=== PATIENT | female | born 1990 | race Caucasian/White ===

== ENCOUNTER 2019-07-20 08:45 | Outpatient (CLI) | payer MEDICAID, SELFPAY ==
[2019-07-20 08:45] VITALS: BMI 35.4
[2019-07-20 09:04] VITALS: BP 120/69; PULSE 98; RESP 17; TEMP 36.7
[2019-07-20 09:33] VITALS: BP 108/57; PULSE 90; TEMP 37
== END 2019-07-20 09:35 | disposition home or self-care (01) ==
PROVIDERS: Family Provider Family Medicine; PCP Family Medicine; Visit Provider Family Medicine
DX: O36.8190 Decreased fetal movements, unspecified trimester, not applicable or unspecified (principal); Z3A.00 Weeks of gestation of pregnancy not specified
CPT/HCPCS: 59025; 99211

== ENCOUNTER 2019-08-20 13:40 | Outpatient (CLI) | payer MEDICAID, SELFPAY ==
[2019-08-20 14:01] VITALS: BP 123/65; PULSE 93
--- NOTE | 2019-08-20 14:11 | US_ITS ---
WS: [id number] OB BPP wo NST 47077 REASON FOR EXAM: hypertention FINDINGS: The cervix measured 3.99 cm. heart rate 1 20 bpm Amniotic fluid indices 12.26 cm Abdominal circumference 32.83 weeks gestation 36 weeks 5 day station. Head circumference biparietal diameter 9.14 cm 37 weeks 1 day gestation Head circumference 32.5 cm 36 weeks 6 days gestation Weight 3074 grams 38 weeks 2 days gestation All 4 chambers of the heart are well seen. All 4 chambers show normal appearance. A grade 2 placenta fundal and posterior Biophysical profile 01/25. US/US OB BPP wo NST 28555 IMPRESSION: Fetus appears to be at 38 weeks gestation. SHIRA September 01, 2019 Biophysical profile 01/25 The parts were not completely evaluated on this study.
[2019-08-20 14:17] VITALS: BP 116/63; PULSE 86
[2019-08-20 14:31] VITALS: BMI 38.0
[2019-08-20 14:31] LABS: Basophils % 0.3 %; Eosinophils # 0.1 10^3/uL (0.0-0.8); Eosinophils % 0.6 %; Hematocrit 33.9 % (37.0-47.0); Hemoglobin 10.9 g/dL (11.5-15.3); Lymphocytes # 1.9 10^3/uL (0.8-4.8); Lymphocytes % 24.5 %; Mean Corpuscular HGB Conc 32.2 g/dL (30.0-36.0); Mean Corpuscular Hemoglobin 28.2 pg (28.0-34.0); Mean Corpuscular Volume 87.8 fL (81-99); Mean Platelet Volume 9.3 fL (7.4-10.4); Monocytes # 0.6 10^3/uL (0.2-0.9); Monocytes % 7.1 %; Neutrophils # 5.1 10^3/uL (1.8-7.7); Neutrophils % 64.3 %; Nucleated Red Blood Cells % 0 %; Platelet Count 214 10^3/cmm (130-400); Red Blood Count 3.86 10^6/uL (4.1-5.3); Red Cell Distribution Width 13.5 % (12.1-15.1); White Blood Count 7.9 10^3/uL (4.0-10.0)
[2019-08-20 14:32] LABS: Bilirubin Urine Neg (NEGATIVE); Blood Urine Neg (Negative); Glucose Urine UA Norm (Normal); Ketones Urine Negative (Negative); Nitrate Urine Negative (Negative); Protein Urine Neg (Negative); Specific Gravity, Urine 1.015 (1.005-1.030); Urine Appearance SL Hazy (CLEAR); Urine Color Straw (Yellow); Urobilinogen Urine Norm (Negative); pH Urine 6 (5-7)
[2019-08-20 14:33] LABS: Add Urine Microscopic? YES; Leukocyte Esterase Urine Trace (Negative)
[2019-08-20 14:37] VITALS: BP 112/68; PULSE 83
[2019-08-20 14:40] LABS: Bacteria Urine TRACE
[2019-08-20 14:41] LABS: Squamous Epithelial Cell Urine 15-25 (0-5)
[2019-08-20 14:48] LABS: Urine Creatinine 40 mg/dL (28-217); Urine Protein Random 6 mg/dL
[2019-08-20 14:51] LABS: UPRO/UCREAT Ratio 0.15 mg/mg CR
[2019-08-20 14:57] VITALS: BP 112/65; PULSE 87
[2019-08-20 14:59] LABS: Alanine Aminotransferase 9 U/L (0-33); Albumin Level 3.4 g/dL (3.5-5.2); Alkaline Phosphatase 150 IU/L (35-105); Aspartate Amino Transferase 16 U/L (0-32); Blood Urea Nitrogen 9 mg/dL (6-20); Calcium 9.7 mg/dL (8.5-10.5); Carbon Dioxide 20 mmol/L (22-29); Chloride 103 mmol/L (98-107); Globulin 2.6 g/dL (1.3-4.6); Glomerular Filtration Rate 144.9 mL/min (90-130); Glucose 118 mg/dL (65-115); Sodium 137 mmol/L (136-145); Total Bilirubin 0.2 mg/dL (0.15-1.2); Uric Acid 3.8 mg/dL (2.4-5.7)
[2019-08-20 15:23] VITALS: BP 112/65; PULSE 87
[2019-08-20 15:25] VITALS: BP 120/72; PULSE 86
== END 2019-08-20 15:43 | disposition home or self-care (01) ==
LOC: OPOB 13:54 → OBGYN 15:23 → OPOB 08-21 08:04
PROVIDERS: Family Provider Family Medicine; PCP Family Medicine; Visit Provider Family Medicine
DX: O16.9 Unspecified maternal hypertension, unspecified trimester (principal); Z3A.00 Weeks of gestation of pregnancy not specified
CPT/HCPCS: 36415; 59025; 76819; 80053; 81001; 82570; 84156; 84550; 85025; 99211

== ENCOUNTER 2019-08-21 17:31 | Outpatient (CLI) | payer MEDICAID, SELFPAY ==
[2019-08-21 18:52] LABS: Total Volume, Urine 3000 mL
[2019-08-21 19:39] LABS: Urine Total Protein 24 Hour 11.2 mg/dL (0-150)
== END 2019-08-21 17:32 | disposition home or self-care (01) ==
LOC: OPOB 17:33
PROVIDERS: Family Provider Family Medicine; PCP Family Medicine; Visit Provider Family Medicine
DX: Z53.21 Procedure and treatment not carried out due to patient leaving prior to being seen by health care provider (principal)
CPT/HCPCS: 84156

== ENCOUNTER 2019-08-23 11:45 | Outpatient (CLI) | payer MEDICAID, SELFPAY ==
[2019-08-23 11:59] VITALS: BP 111/62; PULSE 104
[2019-08-23 12:07] VITALS: BMI 38.2
[2019-08-23 12:15] VITALS: BP 115/64; PULSE 96
== END 2019-08-23 12:23 | disposition home or self-care (01) ==
LOC: OPOB 11:52 → OBGYN 12:26 → OPOB 08-24 07:41
PROVIDERS: Family Provider Family Medicine; PCP Family Medicine; Visit Provider Family Medicine
DX: O16.9 Unspecified maternal hypertension, unspecified trimester (principal); Z3A.00 Weeks of gestation of pregnancy not specified
CPT/HCPCS: 59025; 99211

== ENCOUNTER 2019-08-27 10:00 | Outpatient (CLI) | payer MEDICAID, SELFPAY ==
[2019-08-27 10:00] VITALS: BMI 38.4
[2019-08-27 10:05] VITALS: BP 120/70; PULSE 98; RESP 16; TEMP 36.5
[2019-08-27 10:26] VITALS: BP 118/66; PULSE 80; RESP 17
== END 2019-08-27 10:40 | disposition home or self-care (01) ==
PROVIDERS: Family Provider Family Medicine; PCP Family Medicine; Visit Provider Family Medicine
DX: O16.9 Unspecified maternal hypertension, unspecified trimester (principal); Z3A.00 Weeks of gestation of pregnancy not specified
CPT/HCPCS: 59025

== ENCOUNTER 2019-08-27 10:56 | Outpatient (CLI) | payer MEDICAID, SELFPAY ==
--- NOTE | 2019-08-27 11:04 | US_ITS ---
WS: [id number] BIOPHYSICAL PROFILE AND LIMITED OB. HISTORY: SUPERVISION NORMAL COMPARISON: 08/20/2019 Presentation: Vertex Cervix: Closed. Length is difficult to determine. Placenta: Fundal. Grade: 2 HEART: FHR of 126BPM Biophysical profile: Parameters are as follows: Breathin Movement: 2 Tone: 2 Fluid volume: 2 Amniotic fluid index 13.7 cm which is near the 50th percentile. Largest vertical pocket of fluid is 5 .1 cm. 1. Biophysical profile score: 8/8. 2. Normal amniotic fluid index. US/US OB F/U w BPP wo NST IMPRESSION:
== END 2019-08-27 10:57 | disposition home or self-care (01) ==
LOC: RAD 10:59
PROVIDERS: Family Provider Family Medicine; PCP Family Medicine; Visit Provider Family Medicine
DX: Z34.80 Encounter for supervision of other normal pregnancy, unspecified trimester (principal)
CPT/HCPCS: 76816; 76819

== ENCOUNTER 2019-08-28 23:45 | Outpatient (CLI) | payer MEDICAID, SELFPAY ==
[2019-08-28 23:56] VITALS: BP 119/76; PULSE 96
[2019-08-29] VITALS (13 sets, daily range): BP systolic 0–111; BP diastolic 0–68; PULSE 82–93; RESP 16; TEMP 36.6; O2SAT 96–97; BMI 38.4
== END 2019-08-29 02:08 | disposition home or self-care (01) ==
LOC: OPOB 23:52 → OBGYN 08-29 01:58 → OPOB 08-29 08:25
PROVIDERS: Family Provider Family Medicine; PCP Family Medicine; Visit Provider Family Medicine
DX: O26.899 Other specified pregnancy related conditions, unspecified trimester (principal); Z3A.00 Weeks of gestation of pregnancy not specified; R10.9 Unspecified abdominal pain
CPT/HCPCS: 59025; 99211

== ENCOUNTER 2019-08-30 18:53 | Inpatient (IN) | payer MEDICAID, SELFPAY ==
[2019-08-30] VITALS (19 sets, daily range): BP systolic 0–136; BP diastolic 0–75; PULSE 83–96; RESP 16–18; TEMP 36.7–37; BMI 85.5; BMI 38.7
--- NOTE | 2019-08-30 18:55 | PM.HP ---
Providers/Chief Complaint Admitting Physician: Aric Cordon MD Primary Care Provider: Aric Cordon MD Chief Complaint: elevated bp History of Present Illness Milena Flores is a 29 year old at 37.4 weeks gestation by LMP consistent with 9-week ultrasound. 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 The patient was admitted to labor and delivery triage secondary to preeclampsia without severe features. The patient has been having blood pressures in the 140s over 90s systolic with 1 in the 150s at our office. Her total urine protein was 336 on 08/21/2019. I discussed with the patient the risks of preeclampsia and the indication for delivery at 37 weeks. I also discussed watchful waiting and the patient and her are in agreement with delivery at this time. Currently the patient does not have any severe features. She denies any headaches, nausea, vomiting, seeing flashes of lights, vaginal bleeding, leakage of fluid or severe contractions. Medications/Allergies Allergies Allergy/AdvReac Type Severity Reaction Status Date / Time No Known Allergies Allergy Verified 08/27/19 10:58 PFSH Acute PFSH: Family History Family/Other Breast cancer maternal aunt Mother Diabetes Thyroid condition Father Hypertension Brother Hypertension Social History Smoking and tobacco status: former smoker Quit status (tobacco): has quit using tobacco Year quit tobacco: 2018 Alcohol intake: never Vitals/I&O/Wt Last Vital Signs Pulse 90 08/30/19 18:39 BP 0/0 08/30/19 18:54 Physical Exam Narrative: EXAM NARRATIVE: General: Alert and oriented x3 Eyes: Pupils equal round and reactive to light and accommodation Mouth: Mucous membranes moist, pharynx non-erythematous Cardiac: Regular rate and rhythm without murmurs Lungs: Clear to auscultation bilaterally without wheezes, crackles or rhonchi Abdomen: Soft, non-tender, fundus consistent with gestational age Extremities: Trace edema in the bilateral lower extremities. Bilateral deep tendon reflexes are brisk. A&P Assessment and plan (1) Preeclampsia: Status: Acute Code(s): O14.90 - Unspecified pre-eclampsia, unspecified trimester Additional A&P Information The patient currently feels well. We will proceed with induction of labor secondary to preeclampsia without severe features. The patient is currently normotensive. We will start antihypertensive protocol if needed. For now we will wait on IV magnesium, however when she is in active labor, we will plan to start it. The patient may have a laboring epidural when she is 3 cm. We will start induction of labor with Cytotec and plan to move to IV Pitocin once her cervix is more favorable. She is currently 1 cm dilated with 50% effacement. All questions were answered. The patient and her are in agreement with the current plan of care. Attestations Medical Necessity Statement*: The patient will be here for greater than 2 midnights due to routine intrapartum and management of labor and delivery. Coding Level of Care Code Acute Envelope Folding Machine Adjuster for [facility] Diagnoses Preeclampsia O14.90
[2019-08-30 19:55] LABS: Basophils % 0.2 %; Eosinophils # 0.1 10^3/uL (0.0-0.8); Eosinophils % 0.6 %; Hematocrit 34.4 % (37.0-47.0); Hemoglobin 11.1 g/dL (11.5-15.3); Lymphocytes # 2.4 10^3/uL (0.8-4.8); Lymphocytes % 28.3 %; Mean Corpuscular HGB Conc 32.3 g/dL (30.0-36.0); Mean Corpuscular Hemoglobin 28.4 pg (28.0-34.0); Mean Platelet Volume 9.6 fL (7.4-10.4); Monocytes # 0.5 10^3/uL (0.2-0.9); Monocytes % 6.2 %; Neutrophils # 5.2 10^3/uL (1.8-7.7); Neutrophils % 62.2 %; Nucleated Red Blood Cells % 0 %; Platelet Count 220 10^3/cmm (130-400); Red Blood Count 3.91 10^6/uL (4.1-5.3); Red Cell Distribution Width 13.4 % (12.1-15.1); White Blood Count 8.4 10^3/uL (4.0-10.0)
[2019-08-30] MEDS: miSOPROStol 100 mcg tablet 25 MCG VAGINAL (20:07)
[2019-08-30 20:16] LABS: Alanine Aminotransferase 12 U/L (0-33); Albumin Level 3.3 g/dL (3.5-5.2); Alkaline Phosphatase 146 IU/L (35-105); Anion Gap 17.3 (5-19); Aspartate Amino Transferase 19 U/L (0-32); Blood Urea Nitrogen 6 mg/dL (6-20); Carbon Dioxide 20 mmol/L (22-29); Chloride 100 mmol/L (98-107); Globulin 2.8 g/dL (1.3-4.6); Glomerular Filtration Rate 187.4 mL/min (90-130); Glucose 157 mg/dL (65-115); Osmolality Calculated 277 mOsm/kg (285-295); Potassium 3.3 mmol/L (3.5-5.1); Sodium 134 mmol/L (136-145); Total Bilirubin 0.2 mg/dL (0.15-1.2); Total Protein 6.1 g/dL (6.6-8.7); Uric Acid 3.7 mg/dL (2.4-5.7)
[2019-08-31] VITALS (100 sets, daily range): BP systolic 0–151; BP diastolic 0–100; PULSE 72–126; RESP 10–18; TEMP 36.2–37.1; O2SAT 93–99
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
[2019-08-31] MEDS: miSOPROStol 100 mcg tablet 25 MCG VAGINAL (04:44)
[2019-08-31] MEDS: lactated ringers 1,000 ML 999 ML IV ×2 (06:57→09:04)
[2019-08-31] MEDS: butorphanol 2 mg/mL SDV 1 mL 1 MG IVP (07:27)
--- NOTE | 2019-08-31 08:50 | ANES.PREANE2 ---
Pre-Anesthetic Assessment Pre-Anesthetic Assessment: Height/Weight: Height 1.63 m Weight 102.512 kg Temp Pulse Resp BP Pulse Ox 97.8 F 101 H 15 118/62 96 08/31/19 02:00 08/31/19 08:46 08/31/19 02:00 08/31/19 08:46 08/31/19 08:47 Preop Diagnosis: IUP Proposed Procedure: epidural Familial anesthetic complications: None Was Beta Diane taken within 24 hours: N/A Last intake: NPO > 8 hrs Social: Social History: No alcohol and No tobacco Exam: Pre-Anes Outpt Exam: alert, oriented x 3, clear to auscultation bilaterally and regular rate & rhythm Airway: Cervical ROM: WNL MP: 4 Dentition: Full Pulmonary: Pulmonary: None reported CV/HEM: CV/HEM: None reported : : None reported Hepatic: Hepatic: None reported GI: GI: None reported Metabolic: Metabolic: Thyroid Musc/skel: Musc/skel: None reported Neuropsych: Neuropsych: None reported Anesthetic Plan: ASA status: 2 Anesthesia: Regional (specify below) (epidural) Other: preeclampsia Risk of > 500 ml blood loss (7ml/kg in children): Yes, adequate IV access and fluids planned Meds/Allergies Current Medications: Current Medications Generic Name Dose Route Start Last Admin Trade Name Freq PRN Reason Stop Dose Admin Butorphanol Tartra te 1 mg 08/30/19 18:50 08/31/19 07:27 Stadol IVP 1 mg Q2H PRN Administration SEVERE PAIN Sodium Chloride 1,000 mls @ 125 m ls/hr 08/30/19 19:00 08/31/19 07:34 Sodium Chloride 0.9% IV Not Given .Q8H YOAN Lactated Ringer's 1,000 mls @ 999 m ls/hr 08/31/19 06:42 08/31/19 06:57 Lactated Ringers IV 999 mls/hr .Q1H1M PRN Administration ANESTHESIA PFSH Anesthesia PFSH: Family History Family/Other Breast cancer maternal aunt Mother Diabetes Thyroid condition Father Hypertension Brother Hypertension Social History Smoking and tobacco status: former smoker Quit status (tobacco): has quit using tobacco Year quit tobacco: 2019 Alcohol intake: never Female Reproductive History: : 3 Data Anesthesia CBC & Chem 7: 08/30/19 19:35 08/30/19 19:35 Other Labs: Laboratory Results - last 48 hr 08/30/19 08/30/19 19:35 19:35 WBC 8.4 RBC 3.91 L Hgb 11.1 L Hct 34.4 L MCV 88.0 MCH 28.4 MCHC 32.3 RDW 13.4 Plt Count 220 MPV 9.6 Neut % (Auto) 62.2 Lymph % (Auto) 28.3 Mcculloch % (Auto) 6.2 Eos % (Auto) 0.6 Baso % (Auto) 0.2 Neut # (Auto) 5.2 Lymph # (Auto) 2.4 Mcculloch # (Auto) 0.5 Eos # (Auto) 0.1 Baso # (Auto) 0.0 Nucleated RBC % (auto) 0 Nucleated RBCs # 0.0 Sodium 134 L Potassium 3.3 L Chloride 100 Carbon Dioxide 20 L Anion Gap 17.3 BUN 6 Creatinine 0.4 L GFR Calculation 187.4 H Glucose 157 H Calculated Osmolality 277 L Uric Acid 3.7 Calcium 9.0 Total Bilirubin 0.2 AST 19 ALT 12 Alkaline Phosphatase 146 H Total Protein 6.1 L Albumin 3.3 L Globulin 2.8 Cardiac Studies: No Data to Display
--- NOTE | 2019-08-31 08:51 | ANES.PROC ---
Anesthesia Procedures Procedure/Date: 08/31/19 Epidural: Time Out Performed: Yes Consents Signed: Procedure Consent and NPO Consent Consent: requested by attending/covering physician, from patient, risks and benefits reviewed and patient agrees to proceed Lumbar Level: L2-L3 Epidural position: sitting Epidural procedure: sterile prep of area, 1% lidocaine to numb the area, 18 g needle, neg for paresthesia, test dose given, 1.5% xylocaine 1:200k epi (3 ml), placed PCEA, sterile dressing applied and 0.2% Ropiavacaine @ mls/hr (9 ml/hr) Additional Comments: Bolus with bupivicaine 0.25% at fentanyl 100 mcg with mild hypotension - fluid bolus continued Loss of resitance at 5.5 cm, threaded to 11 cm
--- NOTE | 2019-08-31 09:59 | PC.NURSE ---
08/31/2019 9499 Heel Reducer at bedside with second nurse to verify baby's position with bedside ultrasound. Vertex presentation observed by contract writer and Peyton Reardon RN
[2019-08-31] MEDS: dextrose 5%-lactated ringers 1,000 ML 125 ML IV (10:03)
[2019-08-31] MEDS: oxytocin 30 UNIT/500 ML BAG IV (10:05)
[2019-08-31] MEDS: famotidine 20 mg/2 mL INJ IVP (12:10)
--- NOTE | 2019-08-31 13:16 | P.PCNOB_ITS ---
Delivery Note: Date of delivery: August 31, 2019 Pre-delivery diagnoses: 1. Intrauterine at 37.5 weeks gestation 2. Smoker -quit in February 06 3. History of child with severe jaundice 4. 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 Thyroid nodule 6. Preeclampsia without severe features Post-delivery diagnoses: 1. Intrauterine at 37.5 weeks gestation 2. Smoker -quit in February 06 3. History of child with severe jaundice 4. 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 Thyroid nodule 6. Preeclampsia without severe features Procedure: Spontaneous vaginal delivery Op report anesthesia: Epidural Estimated blood loss (mL): 150 Findings: 1. Intact placenta with central umbilical cord insertion site 2. Delivery of healthy male weighing 9 pounds 4 ounces with Apgars of 9 and 9 Pre-Delivery Course: The patient was brought in for induction of labor on the evening of 08/30/2019 secondary to preeclampsia without severe features. We had a lengthy discussion regarding the potential risks of early delivery versus the risks of proceeding onwards. The patient opted for delivery. The patient was given Cytotec x2 doses and she changed to 3 cm dilation by the morning of 08/31/2019. She continued to make change and a laboring epidural was given. A bulging bag was noted in the head was well applied, so AROM was performed at 8:46 AM on 08/31/2019 without complication. Clear fluid was noted. Her contractions started to space out, so Pitocin was given IV to augment labor. The patient made quick change and was complete at 12:09 PM on 08/31/2019. Delivery: The mother began pushing at 12:15 PM on 08/31/2019. The patient pushed well and the infant delivered at 12:32 PM in the OA position. There was a nuchal cord and it was reduced prior to delivery. The right shoulder was the anterior shoulder and it delivered with ease. Rest of the infant delivered without complication. The infant was crying immediately upon delivery. The mouth and nose were bulb suctioned by myself. The was placed on the mother's chest where the nurses were waiting to care for him. The cord was clamped by myself after approximately 1 minute. The cord was cut by the 's father. Cord blood was then obtained. Traction was placed on the umbilical cord and the placenta delivered at 12:36 PM without complication. The placenta was noted to be intact with a central umbilical cord insertion site. The uterus was massaged and the cervix was inspected. No lacerations were noted. Vaginal wall was inspected and a second-degree midline perineal laceration was noted. Adequate anesthesia was present with the epidural, so no lidocaine was necessary. 3-0 Vicryl was used to repair the laceration in a running fashion. The patient tolerated this well. The rectum was inspected digitally and no sutures were noted. Currently both the mother and are doing very well. The patient's bleeding is minimal. The patient's blood pressures are all in the 110-130s range systolic or less. If her blood pressures begin to increase, then we will need to start IV magnesium. A&P Assessment and plan (1) Preeclampsia: Status: Acute Code(s): O14.90 - Unspecified pre-eclampsia, unspecified trimester (2) Intrauterine : Status: Acute Code(s): Z34.90 - Encounter for supervision of normal , unspecified, unspecified trimester Coding Level of Care Code Acute Director Executive Communications for [facility] Opal Diagnoses Preeclampsia O14.90 Intrauterine Z34.90
--- NOTE | 2019-08-31 13:44 | W.PM.OPSUD ---
Surgery/Procedure H&P Update DATE OF PROCEDURE: August 31, 2019 DATE H&P PERFORMED: 08/30/19 PREOP DIAGNOSIS: IUP PLANNED PROCEDURE: Operation Date: 08/31/19 14:30 Proposed Procedures p Post Bilateral Tubal Ligation(Bilateral) - Aric Cordon MD
[2019-08-31] MEDS: metoclopramide 5 mg/mL SDV 2 mL 10 MG IVP (13:55)
[2019-08-31] MEDS: CELEcoxib 200 mg Capsule 400 MG PO (14:19)
[2019-08-31] MEDS: citric acid-sodium citrate 30 mL UDC PO (14:19)
[2019-08-31] MEDS: gabapentin 300 mg Capsule PO (14:19)
--- NOTE | 2019-08-31 15:00 | SUR.OPER ---
patel catheter removed at end of the case and epidural removed, cath tip intact
--- NOTE | 2019-08-31 15:03 | SUR.PHASEI ---
1458- PT REPORTS BILATERAL SENSATION TO TOUCH AT KNEE LEVEL
--- NOTE | 2019-08-31 15:14 | ANE.PACU2 ---
 Inpatient post-anesthesia follow up: Airway intact: Yes Vital signs: Temperature 98.8 F Pulse Rate 77 Respiratory Rate 12 Blood Pressure 114/63 Pulse Oximetry 96 Oxygen Delivery Me thod Room Air Oxygen Flow Rate 2 Fraction of Inspir ed Oxygen Hydration adequate: Yes Nausea and vomiting: No Pain level: 1 Mental status: Baseline
--- NOTE | 2019-08-31 15:40 | PM.OP ---
Operative Report Date of procedure: August 31, 2019 Pre-op Diagnosis: IUP Pre-op Diagnosis: undesired fertility Post-op Diagnosis: same secondary infertility Post-op Findings: normal tubes/ovaries Procedure Done: [facility] Pathology: tubes to pathology Surgeon: Yaron Bo Anesthesia: Epidural Estimated blood loss (mL): 10 IV fluids (mL): 600 Urine output (mL): 200 Complications: none Findings: normal tubes/ovaries Condition: stable Disposition: floor Brief History: 29-year-old G3, P3 lady well immediately status post vaginal delivery of her third child desires permanent sterilization. Had previously been seen and counseled for same in the office. She understands a tubal is permanent no guarantee of success fails 1-300 times risk of ectopic and cannot be reversed. She also understands risks of surgery includes but not limited to risk of anesthesia infection bleeding damage to bowel bladder nerves vessels other organs possibility of needing a blood transfusion possibility of needing to remove ovary all ovaries and uterus to save life. Procedure: See above this young lady is now immediately post . After being evaluated by anesthesia she was taken to the operating room for tubal. Patient had been counseled permits have been signed. Her epidural was dosed per anesthesia she then was taken to the operating room placed on the operating table supine. Lockett catheter was placed abdomen was prepped and draped after appropriate level anesthesia was achieved a 3 cm infra for umbilical midline incision was made after infiltrated with a lidocaine Marcaine. Incision was carried down the subcutaneous tissue the fascia was nicked extended cephalad and caudad. The small Shant retractor was placed. Patient was then rotated slightly to her left the right fallopian tube was grasped followed out to its fimbriated end and avascular segment of the mesosalpinx was then looped up and the loop of tube was then suture ligated with 0 plain and then the ends were ligated with 0 plain specimen was excised handoff ends of the tubes were cauterized. There was excellent hemostasis. Attention was directed to the patient's life left side she was rolled slightly to the left once again the left tube was then applied followed out to its fimbriated end avascular segment of the tube mesosalpinx was then looped up and tied off with 0 plain and then the proximal distal ends tied off with 0 plain and the segment of tube excised and handed off cautery was utilized on the ends of the tubes. Once again there was no bleeding. Both fallopian tube regions were inspected for bleeding there was no bleeding the fascia and posterior sheath were closed with a running 0 Vicryl suture subcu was closed with running 2-0 Vicryl. The skin was then closed with a subcuticular 4-0 Vicryl and Dermabond applied. At this point time procedure was terminated Lockett catheter was removed patient was transferred from our table Gerding taken recovery in good condition. She will go to the postop floor to resume normal activity plan discharge home in a.m. recommend she see me in 2 weeks. There were no complications in his dictation please send a copy this to my office and to Dr. Cordon thank you very much
[2019-08-31] MEDS: docusate sodium 100 mg Capsule PO (16:48)
[2019-08-31] MEDS: lanolin oint 7 gm 1 APPLIC TOPICAL (18:03)
[2019-08-31] MEDS: benzocaine-menthol 78 gm Canister 1 SPRAY TOPICAL (18:04)
[2019-08-31] MEDS: HYDROcodone-acetaminophen 5-325 mg Tablet PO ×2 (18:04→22:32)
[2019-09-01 04:00] VITALS: BP 120/80; PULSE 82; RESP 12; TEMP 36.4; O2SAT 96
[2019-09-01 04:24] LABS: Hematocrit 32.9 % (37.0-47.0); Hemoglobin 10.6 g/dL (11.5-15.3); Mean Corpuscular HGB Conc 32.2 g/dL (30.0-36.0); Mean Corpuscular Hemoglobin 29.5 pg (28.0-34.0); Mean Corpuscular Volume 91.6 fL (81-99); Mean Platelet Volume 9.6 fL (7.4-10.4); Platelet Count 163 10^3/cmm (130-400); Red Blood Count 3.59 10^6/uL (4.1-5.3); Red Cell Distribution Width 13.3 % (12.1-15.1); White Blood Count 10.5 10^3/uL (4.0-10.0)
[2019-09-01] MEDS: HYDROcodone-acetaminophen 5-325 mg Tablet PO ×2 (04:43→11:33)
--- NOTE | 2019-09-01 08:15 | ANE.PACU2 ---
 Inpatient post-anesthesia follow up: Airway intact: Yes Vital signs: Temperature 97.5 F Pulse Rate 82 Respiratory Rate 12 Blood Pressure 120/80 Pulse Oximetry 96 Oxygen Delivery Me thod Room Air Oxygen Flow Rate 2 Fraction of Inspir ed Oxygen Hydration adequate: Yes Nausea and vomiting: Yes (Mild PONV (from pain meds)) Pain level: 2 Mental status: Baseline Additional Comments: Up and ambulating without difficulty, no H/A
[2019-09-01] MEDS: prenatal vitamin Capsule 1 CAP PO (08:35)
[2019-09-01] MEDS: levothyroxine 50 mcg Tablet PO (08:35)
[2019-09-01] MEDS: promethazine 25 mg Tablet PO (08:35)
[2019-09-01] MEDS: ferrous sulfate EC 325 mg Tablet PO (08:35)
[2019-09-01] MEDS: docusate sodium 100 mg Capsule PO (08:35)
[2019-09-01 10:48] VITALS: BP 110/69; PULSE 83; RESP 17; TEMP 36.6; O2SAT 95
--- NOTE | 2019-09-01 11:09 | PM.DCS ---
Discharge Providers Date of Admission: 08/30/19 18:54 Date of Discharge: September 01, 2019 Attending Provider at Admission: Aric Cordon MD Attending Provider at Discharge: Aric Cordon MD Primary Care Provider: Aric Cordon MD Diagnoses at Discharge Discharge Diagnosis (1) Preeclampsia: Status: Acute (2) Intrauterine : Status: Acute Other Information Additional DC diagnoses/information: 1. Intrauterine status post spontaneous vaginal delivery at 37.5 weeks gestation 2. Smoker - quit in January 2019 3. History of child with severe jaundice 4. 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 Thyroid nodule 6. Preeclampsia without severe features 7. Status post bilateral tubal ligation by Dr. Bo Reason for Visit Reason for Visit: Reason For Visit: elevated bp Hospital Course Hospital Course: Predelivery course: The patient was brought in for induction of labor on the evening of 08/30/2019 secondary to preeclampsia without severe features. We had a lengthy discussion regarding the potential risks of early delivery versus the risks of proceeding onwards. The patient opted for delivery. The patient was given Cytotec x2 doses and she changed to 3 cm dilation by the morning of 08/31/2019. She continued to make change and a laboring epidural was given. A bulging bag was noted in the head was well applied, so AROM was performed at 8:46 AM on 08/31/2019 without complication. Clear fluid was noted. Her contractions started to space out, so Pitocin was given IV to augment labor. The patient made quick change and was complete at 12:09 PM on 08/31/2019. Delivery: The mother began pushing at 12:15 PM on 08/31/2019. The patient pushed well and the delivered at 12:32 PM in the OA position. There was a nuchal cord and it was reduced prior to delivery. The right shoulder was the anterior shoulder and it delivered with ease. Rest of the delivered without complication. The was crying immediately upon delivery. The mouth and nose were bulb suctioned by myself. The infant was placed on the mother's chest where the nurses were waiting to care for him. The cord was clamped by myself after approximately 1 minute. The cord was cut by the 's father. Cord blood was then obtained. Traction was placed on the umbilical cord and the placenta delivered at 12:36 PM without complication. The placenta was noted to be intact with a central umbilical cord insertion site. The uterus was massaged and the cervix was inspected. No lacerations were noted. Vaginal wall was inspected and a second-degree midline perineal laceration was noted. Adequate anesthesia was present with the epidural, so no lidocaine was necessary. 3-0 Vicryl was used to repair the laceration in a running fashion. The patient tolerated this well. The rectum was inspected digitally and no sutures were noted. Currently both the mother and infant are doing very well. The patient's bleeding is minimal. The patient's blood pressures are all in the 110-130s range systolic or less. If her blood pressures begin to increase, then we will need to start IV magnesium. course: The patient has been doing very well without any complications. Her blood pressures have all been good. She is showing no signs of severe symptoms of preeclampsia. She had a bilateral tubal ligation done by Dr. Bo. She has done well with this. Her pain is currently well controlled with Motrin and hydrocodone. The patient is ambulating, voiding, and tolerating food by mouth. We will see how the patient does throughout the day and as long as her blood pressures are now moving up or having other concerning findings, I would be okay with her going home today. The patient was given precautions to keep overall activity levels down for the next couple of days. Precautions were given. The patient is requesting to go home today instead of tomorrow. I feel that this would be okay at this time since she is doing well. Precautions given. Physical Exam Narrative: EXAM NARRATIVE: General: Alert and oriented x3 Cardiac: Regular rate and rhythm without murmurs Lungs: Clear to auscultation bilaterally without wheezes, crackles or rhonchi Abdomen: Soft, mild to moderate tenderness diffusely without concerning findings. Fundus is firm and 2 cm below the umbilicus. Incision is clean and dry with surrounding bruising. Extremities: +1 edema in the bilateral lower extremities Urinary Catheter Management^: Lockett: Cath Placed During This Visit: yes, but has since been removed by the nurse Urinary Catheter Date of Insertion: 08/31/19 Urinary Catheter Time of Insertion: 14:20 Date Urinary Catheter Removed: 08/31/19 Time Urinary Catheter Discontinued: 14:48 Discharge Data Data Completed and Pending: Pending at discharge Category Date Time Status Pathology: Surgic al [PTH] Routine Pth 08/31/19 14:51 Ordered Labs from last 24 hours 09/01/19 04:11 WBC 10.5 H RBC 3.59 L Hgb 10.6 L Hct 32.9 L MCV 91.6 MCH 29.5 MCHC 32.2 RDW 13.3 Plt Count 163 MPV 9.6 Vitals: Last Vital Signs Temp 97.8 F 09/01/19 10:48 Pulse 83 09/01/19 10:48 Resp 17 09/01/19 10:48 BP 110/69 09/01/19 10:48 Pulse Ox 95 09/01/19 10:48 Discharge Plan Discharge Patient Disposition: Home, Self-Care Condition: Stable Prescriptions: New hydrocodone-acetaminophen 5-325 mg Tablet 1 tab PO Q6H PRN (Reason: Moderate To Severe Pain) Qty: 20 RF: 0 ferrous sulfate 325 mg (65 mg iron) Tablet,Delayed Release (Dr/Ec) 325 mg PO DAILY Qty: 30 RF: 0 ibuprofen 800 mg Tablet 800 mg PO TID Qty: 60 RF: 0 Continued 1 tab PO DAILY RF: 0 Unisom (doxylamine) 25 mg tablet 25 mg PO .at hs RF: 0 levothyroxine 50 mcg tablet 50 mcg PO DAILY RF: 0 Discharge Orders: Discharge Order (Routine); Ordered 09/01/19 Ordered By: Aric Cordon Referrals: Aric Cordon MD [Primary Care Provider] - (Please call Dr. Cordon's office at [phone] first thing Tuesday morning to schedule any needed appointments for you and baby.) Discharge Diet: Advance as tolerated Discharge Activity: Limit activity as instructed Patient Instructions: Iron Supplements (By mouth), Hydrocodone/Acetaminophen (By mouth), Ibuprofen (By mouth), Levothyroxine (By mouth), Vitamins (By mouth), Doxylamine (By mouth), Vaginal Delivery (DC), OB Discharge Report, OB Food/Drug Interaction Guide, OB Care at Home, OB Home Care, OB Your Care - [facility] Family [facility], OB Proud Parent Packet, OB Vaginal Deliveries Activity Restrictions/Additional Instructions: Do not lift anything heavier than your in the car seat for the next 3 weeks, then gradually increase. Nothing per vagina for 6 weeks. Okay to shower, however no baths for 6 weeks. 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
[2019-09-01 16:11] VITALS: BP 117/73; PULSE 87; RESP 18; TEMP 36.8; O2SAT 96
[2019-09-01 18:14] VITALS: BP 130/86; PULSE 100; RESP 18; TEMP 36.7; O2SAT 97
== END 2019-09-01 18:42 | disposition home or self-care (01) | DRG 798 ==
LOC: OBGYN 09-01 11:09 → OPOB 09-06 09:24
PROVIDERS: Obstetrics & Gynecology Female Pelvic Medicine and Reconstructive Surgery; Admitting Provider Family Medicine; Family Provider Family Medicine; PCP Family Medicine; Visit Provider Family Medicine
PROC: 10E0XZZ Delivery of Products of Conception, External Approach (ICD-10-PCS; CPT 58605; 2019-08-31 14:30)
DX: O14.04 Mild to moderate pre-eclampsia, complicating childbirth (principal); Z37.0 Single live birth; Z3A.37 37 weeks gestation of pregnancy; Z87.891 Personal history of nicotine dependence; O70.1 Second degree perineal laceration during delivery; Z30.2 Encounter for sterilization; E04.1 Nontoxic single thyroid nodule; O69.81X0 Labor and delivery complicated by cord around neck, without compression, not applicable or unspecified
CPT/HCPCS: 12345; 36415; 59025; 59409; 80053; 84550; 85025; 85027; 88302; 96374; G0378; J0131; J0595; J2001; J2765; J2795; J3490; Q0169

== ENCOUNTER → 2019-10-10 10:13 | Outpatient (BNVA) | payer MEDICAID, SELFPAY | PROVIDERS: Family Provider Family Medicine; PCP Family Medicine; Visit Provider Obstetrics & Gynecology Female Pelvic Medicine and Reconstructive Surgery | DX: Z30.9 Encounter for contraceptive management, unspecified (principal) | CPT/HCPCS: 81000 ==

== ENCOUNTER 2020-06-30 07:48 | Outpatient (CLI) | payer MEDICAID, SELFPAY ==
--- NOTE | 2020-06-30 07:59 | US_ITS ---
WS: [id number] ULTRASOUND THYROID TECHNIQUE: Ultrasound of the thyroid. CLINICAL INFORMATION: HYPOTHYROIDISM NOS/R THYROID NODULE COMPARISON: FINDINGS: Thyroid: Right and left thyroid lobes are normal in size and echotexture. Multinodular thyroid. Right thyroid lobe: 5.3 cm x 2.5 cm x 2.0 cm Left thyroid lobe: 5.1 cm x 1.7 cm x 1.3 cm. Isthmus: 0.2 mm. Cervical lymphadenopathy: None. US/US thyroid [id number] IMPRESSION: 1. Again seen are bilateral cystic and solid thyroid nodules. 2. Previous biopsy of the mid right complex thyroid nodule today measuring 2.5 x 1.9 x 1.6 cm similar to the prior examination. 3. Overall no significant changes and recommend continued surveillance with 12 month follow-up.
== END 2020-06-30 07:49 | disposition home or self-care (01) ==
LOC: US 07:49
PROVIDERS: PCP Family Medicine; Visit Provider Family Medicine
DX: E03.9 Hypothyroidism, unspecified (principal); E04.1 Nontoxic single thyroid nodule
CPT/HCPCS: 76536

== ENCOUNTER 2020-12-19 08:48 | Outpatient (CLI) | payer MEDICAID, SELFPAY ==
--- NOTE | 2020-12-19 08:52 | XR_ITS ---
WS: [id number] Scoliosis series, AP and lateral thoracic and lumbar spines. 12/19/2020 Clinical Data: BACK PAIN Comparison: None. Findings: No anomalous vertebra are seen. There are no compression fractures. There is a minimal dextroscoliosi s of 9 degrees measured from the superior aspect of T11 to the superior aspect of L3. XR/XR scoliosis survey 4-5V [id number] Impression: Minimal thoracolumbar dextroscoliosis of 9 degrees.
== END 2020-12-19 08:49 | disposition home or self-care (01) ==
PROVIDERS: PCP Family Medicine; Visit Provider Family Medicine
DX: M54.9 Dorsalgia, unspecified (principal); M41.85 Other forms of scoliosis, thoracolumbar region
CPT/HCPCS: 72083

== ENCOUNTER 2021-06-30 07:18 | Outpatient (CLI) | payer MEDICAID, SELFPAY ==
--- NOTE | 2021-06-30 07:25 | US_ITS ---
WS: [id number] ULTRASOUND THYROID TECHNIQUE: Ultrasound of the thyroid. CLINICAL INFORMATION: THYROID NODULE RIGHT COMPARISON: None. FINDINGS: Thyroid: Right and left thyroid lobes are normal in size and echotexture. Bilateral complex cystic an d solid thyroid nodules. Right thyroid lobe: 4.9 cm x 2.2 cm x 1.9 cm Left thyroid lobe: 4.6 cm x 1.7 cm x 1.2 cm. Isthmus: 0.2 mm. Cervical lymphadenopathy: None. US/US thyroid [id number] IMPRESSION: 1. Again seen are bilateral cystic and solid thyroid nodules similar in appear ance to previous. 2. Prior biopsy of the mid right complex thyroid nodule measuring 1.8 x 1.7 x 2.3 cm. 3. Largest solid nodule left thyroid measures 1.1 x 0.5 x 0.9 cm similar to pr evious 4. Overall no significant changes compared to previous.
== END 2021-06-30 07:19 | disposition home or self-care (01) ==
LOC: RAD 07:21
PROVIDERS: PCP Family Medicine; Visit Provider Clinical Nurse Specialist Adult Health
DX: E04.1 Nontoxic single thyroid nodule (principal)
CPT/HCPCS: 76536

== ENCOUNTER → 2021-10-26 16:02 | Outpatient (BNVA) | payer MEDICAID, SELFPAY | PROVIDERS: PCP Family Medicine; Visit Provider Clinical Nurse Specialist Adult Health | DX: I88.9 Nonspecific lymphadenitis, unspecified (principal) | CPT/HCPCS: 80503; 85025 ==

== ENCOUNTER → 2021-11-13 11:40 | Outpatient (BNVA) | payer MEDICAID, SELFPAY | PROVIDERS: PCP Family Medicine; Visit Provider Clinical Nurse Specialist Adult Health | DX: I88.9 Nonspecific lymphadenitis, unspecified (principal) | CPT/HCPCS: 80053; 85025; 85651; 86140; 86618; 86666; 86757 ==

== ENCOUNTER 2021-11-19 08:09 | Outpatient (CLI) | payer MEDICAID, SELFPAY ==
--- NOTE | 2021-11-19 08:20 | US_ITS ---
WS: [id number] INDICATION: Lymphadenitis TECHNIQUE: Ultrasound RIGHT cervical chain FINDINGS: Ultrasound RIGHT cervical chain. A few prominent lymph nodes in the upper RIGHT cervical ch ain and submandibular space. Largest lymph node measures 1.4 x 0.5 CM. These are nonspecific but may be reactive. Biopsy was not performed today due to high cervical location and proximity to the caroti d artery. The patient will be scheduled for outpatient contrast-enhanced CT neck and RIGHT cervical l ymph node FNA with pathology US/US soft tissue/extremity [id number] IMPRESSION: See above Discussed with Dr. Moffett 11/19/2021 11:21 AM
--- NOTE | 2021-11-19 10:03 | CT_ITS ---
WS: [id number] CT NECK TECHNIQUE: Contrast-enhanced CT of the neck with coronal and sagittal reformatted images. CLINICAL INFORMATION: LYMPHADENITIS NOS COMPARISON: None. DLP: 237.[address] scans at [facility] use at least one of these dose optimization techniques: automated e xposure control; mA and/or kV adjustment per patient size (includes targeted exams where dose is matc hed to clinical indication); or iterative reconstruction. FINDINGS: Low-attenuation peripheral enhancing cystic appearing lesion involving the midline strap muscles exte nding from the hyoid bone inferiorly compatible with thyroglossal duct cyst. This measures approximat samatnha 1.6 x 2.0 x 2.0 CM. Additional lobulated components extending into the RIGHT strap muscle measuri ng 1.3 x 0.9 CM. Recommend ENT consultation for surgical evaluation. Low-attenuation complex RIGHT thyroid nodules similar to the prior ultrasound measuring 1.5 x 1.6 cm in the lower pole and 1.7 x 1.2 cm in the upper pole. Additional small enhancing nodule upper pole LE FT thyroid measuring 9 mm. Intracranial contents are partially visualized with serpiginous calcifications involving the LEFT cer ebellar vermis. This is nonspecific and may represent vascular calcifications. Recommend further eval uation with MRI without and with gadolinium and MRA to evaluate for vascular malformation. In additio n Chiari I malformation with cerebellar tonsils approximately 6 to 7 mm below the foramen magnum with mild crowding of the foramen magnum. 4th ventricle appears normal caliber. This can be further evalu ated cervical spine MRI. Mastoid air cells are well aerated. Paranasal sinuses well aerated. Mild mucosal thickening in the fr ontal ethmoidal recesses. Parotid glands are normal. Normal submandibular glands. Normal epiglottis. Normal piriform sinuses. N ormal glottis. Subglottic airway is patent. Lung apices are well aerated. A few prominent cervical ch ain lymph nodes in the upper cervical chain within normal limits. No suspicious cervical lymphadenopa thy. A few slightly prominent lymph nodes at the thoracic inlet measuring up to 10 mm nonspecific but like ly reactive. CT/CT neck w con* [id number] IMPRESSION: 1. Peripherally enhancing thyroglossal duct cyst described above involving the infrahyoid midline strap muscle and RIGHT strap muscles extending into the pre -epiglottic space. Recommend ENT consultation for consideration of surgical res ection. 2. Serpiginous calcifications within the LEFT posterior fossa involving the ce rebellar vermis is nonspecific but may represent vascular calcifications. Recom mend further evaluation with MRI without and with gadolinium enhancement and MR A to assess for underlying vascular malformation. Recommend correlation with cl inical history. 3. Chiari I malformation with cerebellar tonsils 6 to 7 mm below the foramen m agnum. Mild crowding of the foramen magnum. Recommend further evaluation with c ervical spine MRI to assess the cervical cord. 4. RIGHT greater than LEFT thyroid nodules described above similar to the prio r ultrasound. 5. A few prominent lymph nodes at the thoracic inlet measuring 10 mm nonspecif ic but likely reactive. 6. No cervical lymphadenopathy in the cervical chain.
[2021-11-19] MEDS: iodixanol 320 mg/mL 100mL Btl IV (11:53)
== END 2021-11-19 08:10 | disposition home or self-care (01) ==
LOC: RAD 08:09
PROVIDERS: PCP Family Medicine; Visit Provider Clinical Nurse Specialist Adult Health
DX: I88.9 Nonspecific lymphadenitis, unspecified (principal); G93.5 Compression of brain; E04.2 Nontoxic multinodular goiter
CPT/HCPCS: 70491; 76882

== ENCOUNTER → 2021-12-08 11:07 | Outpatient (BNVA) | payer MEDICAID, SELFPAY | PROVIDERS: PCP Family Medicine; Visit Provider Otolaryngology | DX: Q89.2 Congenital malformations of other endocrine glands (principal); E04.1 Nontoxic single thyroid nodule; Z87.891 Personal history of nicotine dependence | CPT/HCPCS: 99204 ==

== ENCOUNTER → 2022-02-01 14:38 | Outpatient (BNVA) | payer MEDICAID, SELFPAY | PROVIDERS: PCP Family Medicine; Visit Provider Otolaryngology | DX: Z87.891 Personal history of nicotine dependence (principal); Q89.2 Congenital malformations of other endocrine glands | CPT/HCPCS: 99214 ==

== ENCOUNTER 2022-02-04 07:43 | Day surgery (SDC) | payer MEDICAID, SELFPAY ==
[2022-02-04] VITALS (7 sets, daily range): BP systolic 105–127; BP diastolic 71–95; PULSE 61–93; RESP 14–18; TEMP 36.1–36.6; O2SAT 97–100
[2022-02-04 08:00] LABS: OR HCG Qualitative Urine Negative (Negative)
[2022-02-04] MEDS: sodium chloride 0.9% 1,000 ML 30 ML IV (08:23)
--- NOTE | 2022-02-04 08:25 | ANES.PREANE2 ---
Pre-Anesthetic Assessment Height/Weight: Height 1.63 m Weight 81.647 kg Temp Pulse Resp BP Pulse Ox O2 Del Method 97.8 F 79 18 105/71 100 02/04/22 08:07 02/04/22 08:07 02/04/22 08:07 02/04/22 08:07 02/04/22 08:07 02/04/22 08:11 Preop Diagnosis: Thyroglossal duct cyst Operation Date: 02/04/22 09:10 Proposed Procedures p excision of thyroglossal duct cyst/gennaro procedure 37622,Q89.2(Not Applicable) - Ihsan Thomason MD Familial anesthetic complications: None Was Beta Diane taken within 24 hours: N/A Was Clonidine taken within 24 hours: N/A Last intake: Intake Last Liquid Date 02/03/22 Last Liquid Time 23:30 Last Solid Date 02/03/22 Last Solid Time 23:30 Social No alcohol and No tobacco Exam alert, oriented x 3, clear to auscultation bilaterally and regular rate & rhythm Airway Mallampati: Class II Dentition: full Pulmonary None reported CV/HEM None reported None reported Hepatic None reported GI None reported Metabolic Thyroid Disease [facility] None reported Neuropsych None reported Anesthetic Plan ASA status: 2 Anesthesia: General Risk of > 500 ml blood loss (7ml/kg in children): No Medications/Allergies Home Medications Medication Instructions Recorded Confirmed Last Taken Type levothyroxine 50 mcg PO DAILY 08/21/19 02/04/22 02/04/22 History sertraline 100 mg tablet 100 mg PO DAILY #30 tabs 01/26/22 02/04/22 02/03/22 Rx cyclobenzaprine 10 mg tablet 10 mg PO PRN PRN Migraine Headache 02/01/22 02/04/22 Unknown History topiramate 25 mg tablet (Topamax) 25 mg PO DAILY 02/01/22 02/04/22 02/03/22 History Allergies Allergy/AdvReac Type Severity Reaction Status Date / Time No Known Allergies Allergy Verified 02/01/22 14:54 Current Medications Generic Name Dose Route Start Last Admin Trade Name Freq PRN Reason Stop Dose Admin Sodium Chloride 1,000 mls @ 30 mls/hr 02/04/22 08:00 02/04/22 08:23 Sodium Chloride 0.9% IV 02/05/22 07:59 30 mls/hr .Q24H YOAN Administration PFSH Anesthesia Medical History Acute lymphadenitis of arm Request for sterilization Surgical History History of bilateral tubal ligation (08/31/19) [facility] - Dr. Bo No history of previous surgery Family History Family/Other Breast cancer maternal aunt Mother Diabetes Thyroid condition Father Hypertension Brother Hypertension Social History Smoking and tobacco status: former smoker Quit status (tobacco): has quit using tobacco Year quit tobacco: 2019 Alcohol intake: never Female Reproductive History Date of last menstrual period: 01/22/22 Data Anesthesia Cardiac Studies: No Data to Display
[2022-02-04] MEDS: scopolamine 1.5 Patch 1 PATCH TRANSDERMA (08:28)
--- NOTE | 2022-02-04 09:16 | W.PM.OPSUD ---
Surgery/Procedure H&P Update DATE OF PROCEDURE: February 04, 2022 DATE H&P PERFORMED: 02/01/22 H&P UPDATE INFORMATION: I have reviewed H&P completed within last 30 days, I have examined patient prior to procedure and No changes to prior documentation CHANGES TO PREVIOUS DOCUMENTATION: No changes PREOP DIAGNOSIS: Thyroglossal duct cyst PRIMARY INDICATION FOR PROCEDURE: Thyroglossal duct cyst PLANNED PROCEDURE: Operation Date: 02/04/22 09:10 Proposed Procedures p excision of thyroglossal duct cyst/gennaro procedure 83665,Q89.2(Not Applicable) - Ihsan Thomason MD
--- NOTE | 2022-02-04 10:39 | SUR.OPER ---
1009 Dr Thomason injected 1.7ml 2% Lidocaine at surgical site
[2022-02-04] MEDS: neomycin-poly-bacitracin oint 28 gm 1 APPLIC TOPICAL (11:07)
--- NOTE | 2022-02-04 11:18 | P.OP_ITS ---
Operative Report Date of procedure: February 04, 2022 Pre-op diagnosis: Preop Diagnosis Thyroglossal duct cyst Post-op diagnosis: Same Post-op findings: Patient had a thyroglossal duct cyst with tracks inferiorly and superiorly through the hyoid bone. Procedure done: Excision of thyroglossal duct cyst and tract with Lala procedure Implants: No implants Specimens removed/disposition: Thyroglossal duct cyst and tract and central portion of hyoid bone Pathology: Permanent section only Surgeon: Ihsan Thomason MD Anesthesia: General and Local Estimated blood loss: 10 mL Complications: No complications encountered Findings: Findings at surgery were a somewhat deflated thyroglossal duct cyst with thick capsule and some scarring to the thyrohyoid muscle and tract inferior to pyramidal lobe and tract superior to hyoid bone. Brief History: 31-year-old female patient with recurrent episodes of thyroglossal duct cyst swelling and discomfort. Patient being brought to the operating room at this time to undergo excision of the thyroglossal duct cyst and Lala procedure if tracts are identified. The procedure risks and complications were explained in detail. Informed consent was granted and witnessed. The risks discussed included bleeding infection numbness scarring swelling bruising recurrence of the thyroglossal duct cyst and therefore need for additional surgery or additional treatment nerve weakness or numbness and more serious risks associated with anesthesia such as heart attack stroke or not surviving the surgery. Procedure: Description of procedure: The patient was placed on the operating table in the supine position. Adequate general endotracheal tube anesthesia was obtained. A timeout was accomplished identifying the patient date of plan procedure allergies fire risk and medications given. With everyone in agreement the procedure continued. The table was placed into a semirecumbent position. Shoulder roll was placed under the shoulders. The head was supported with a donut. The chin was elevated. The neck was palpated. A neck skin crease line just inferior to the palpable mass was identified and cleansed with alcohol and a total of 1.7 mL of 2% Xylocaine with 1-100,000 epinephrine was used to infiltrate subcuticularly. Then the patient was prepped and draped in usual fashion. A marking pen was used to outline a curvilinear incision in the selected skin crease line. The incision was created with a 15 blade carrying it down to the subcutaneous fat. Then careful dissection was carried out using a dissector and DeBakey forceps and bipolar cautery carrying it down through the platysma muscle. Then a subplatysmal flap was raised. Identification of the strap muscles was identified and the medial raphae identified. Then careful dissection was carried out around the thyroglossal duct cyst which extended to the right of midline with some scarring adherent to the muscle and then off to the left side and centrally. There was a tract found extending inferiorly to the pyramidal lobe and this was resected and tied off. This dissection was then carried out superiorly around the cyst and scar tissue and then extending up to the hyoid bone. The tract did pass through the central portion which was excised. This was followed up into the base of tongue for short distance and ti ed off. The cyst was sent to pathology for permanent section diagnosis along with its tract. Bleeding was controlled with bipolar cautery. The area was irrigated with saline. The area over the hyoid bone resection which was minimal and in the very central portion was closed over with the surrounding muscle and soft tissue. Then the fascia was closed. Then the platysma muscle was closed. All those layers were closed with interrupted 4-0 chromic suture. Then the subcutaneous layer was closed with interrupted 4-0 chromic suture. The skin was closed with a running 5-0 nylon placed subcuticularly. Then the area was cleansed. Neosporin ointment was applied and a large sterile Band-Aid was placed over the surface. The patient was then returned to anesthesia for wake- up and extubation. The patient tolerated the procedure well had an estimated blood loss of 10 mL and arrived in recovery in stable condition.
[2022-02-04] MEDS: oxyCODONE-APAP 10-325 mg Tablet 1 TAB PO (12:06)
--- NOTE | 2022-02-04 12:40 | ANE.PACU2 ---
Inpatient post-anesthesia follow up: Airway intact: Yes Vital signs: Temperature 97.0 F Pulse Rate 62 Respiratory Rate 16 Blood Pressure 122/77 Pulse Oximetry 100 Oxygen Delivery Me thod Room Air Oxygen Flow Rate Fraction of Inspir ed Oxygen Hydration adequate: Yes Nausea and vomiting: No Pain level: 1 Mental status: Baseline
== END 2022-02-04 12:25 | disposition home or self-care (01) ==
PROVIDERS: PCP Family Medicine; Visit Provider Otolaryngology
PROC: (CPT 60280; principal; 2022-02-04 09:10)
DX: Q89.2 Congenital malformations of other endocrine glands (principal); Z87.891 Personal history of nicotine dependence
CPT/HCPCS: 60280; 84703; 88304; J1100; J2250; J2405; J2704; J2710; J3010; J3490; J7030

== ENCOUNTER → 2022-02-12 11:14 | Outpatient (BNVA) | payer MEDICAID, SELFPAY | PROVIDERS: PCP Family Medicine; Visit Provider Otolaryngology | DX: Z48.89 Encounter for other specified surgical aftercare (principal); Q89.2 Congenital malformations of other endocrine glands; Z87.891 Personal history of nicotine dependence | CPT/HCPCS: 99024 ==

== ENCOUNTER 2022-02-12 11:59 | Outpatient (CLI) | payer MEDICAID, SELFPAY ==
[2022-02-17 01:33] LABS: Acetylcholine Receptor Binding <0.30 nmol/L
[2022-02-19 02:07] LABS: Acetylcholine Receptor Block <15 (<15)
[2022-02-25 18:03] LABS: Acetylcholine Recept Modulatin 28
== END 2022-02-12 12:00 | disposition home or self-care (01) ==
LOC: LAB 12:03
PROVIDERS: PCP Family Medicine; Visit Provider Psychiatry & Neurology Neurology
DX: H53.2 Diplopia (principal)
CPT/HCPCS: 83516; 83519

== ENCOUNTER 2022-05-28 14:18 | Outpatient (CLI) | payer MEDICAID, SELFPAY ==
--- NOTE | 2022-05-28 13:30 | CT_ITS ---
WS: [id number] EXAMINATION: CT neck w con* [id number] REASON FOR EXAM: neck mass resection/thyroglossal duct cyst COMPARISON: 11/19/2021 ORDER DATE: 05/28/2022 1:30 PM TOTAL EXAM DLP: 224.[address] scans at [facility] use at least one of these dose optimization techniques: automated e xposure control; mA and/or kV adjustment per patient size (includes targeted exams where dose is matc hed to clinical indication); or iterative reconstruction. Technique: Transaxial computed tomographic images of the neck were obtained after the administration of Omnipaque 350 95 ml intravenously. Multiplanar coronal and sagittal images were reformatted. FINDINGS: Scattered cervical lymph nodes are subcentimeter. The submandibular and parotid glands demonstrate no rmal enhancement bilaterally. The nasopharynx, oropharynx, and hypopharynx are normal. Low-attenuatio n peripheral enhancing multiloculated cystic appearing lesion involving the midline strap muscles has changed overall much smaller in size. Previously the central component measuring approximately 1.6 x 2.0 x 2.0 no longer exist anterior to the hyoid bone but immediately posterior to the hyoid, a cystic component about 10 mm in diameter remains. The prior lobulated component extendi ng into the RIGHT strap muscle measuring 1.3 x 0.9 remains unchanged with a small 5-6 mm intervening component between these. Low-attenuation complex RIGHT thyroid nodules similar to the prior ultrasound measuring 1.5 x 1.6 cm in the lower pole and 1.7 x 1.2 cm in the upper pole. Additional small enhancing nodule upper pole LEFT thyroid measuring 9 mm. Intracranial contents are partially including Chiari I malformation with cerebellar tonsils approxima tely 6 to 7 mm below the foramen magnum were previously noted. Mastoid air cells are well aerated. Paranasal sinuses well aerated. Mild mucosal thickening in the frontal ethmoidal recesses. A few slightly prominent lymph nodes at the thoracic inlet measuring up to 10 mm nonspecific but likely reactive. CT/CT neck w con* [id number] IMPRESSION: 1. The multiloculated thyroglossal duct cyst has decreased significantly mostly in the central aspect as described above.. 2. Chiari I malformation with cerebellar tonsils 6 to 7 mm below the foramen ma gnum was described previously again noted 3. RIGHT greater than LEFT thyroid nodules described above similar to the prior study.
[2022-05-28] MEDS: iohexol 350 mg/mL 500 mL Btl (per mL) IV (15:23)
== END 2022-05-28 14:19 | disposition home or self-care (01) ==
LOC: RAD 14:19
PROVIDERS: PCP Family Medicine; Visit Provider Otolaryngology
DX: R22.1 Localized swelling, mass and lump, neck (principal); G93.5 Compression of brain; E04.2 Nontoxic multinodular goiter
CPT/HCPCS: 70491; Q9967

== ENCOUNTER 2022-06-03 07:48 | Day surgery (SDC) | payer MEDICAID, SELFPAY ==
[2022-06-02 15:41] VITALS: BMI 30.9
[2022-06-03] VITALS (12 sets, daily range): BP systolic 110–139; BP diastolic 77–92; PULSE 66–88; RESP 14–22; TEMP 36.4–36.9; O2SAT 96–100
--- NOTE | 2022-06-03 08:43 | ANES.PREANE2 ---
Pre-Anesthetic Assessment Height/Weight: Height 1.63 m Weight 81.647 kg Temp Pulse Resp BP Pulse Ox O2 Del Method 97.8 F 80 14 110/78 100 06/03/22 08:15 06/03/22 08:15 06/03/22 08:15 06/03/22 08:15 06/03/22 08:15 06/03/22 08:24 Preop Diagnosis: Thyroglossal duct cyst/recurrent/multiple right neck masses Operation Date: 06/03/22 09:00 Proposed Procedures p 64446 - revision of gennaro procedure Q89.2(Not Applicable) - Ihsan Thomason MD Familial anesthetic complications: None Was Beta Diane taken within 24 hours: N/A Was Clonidine taken within 24 hours: N/A Last intake: Intake Last Liquid Date 06/02/22 Last Liquid Time 23:55 Last Solid Date 06/02/22 Last Solid Time 23:50 Social No alcohol and No tobacco Exam alert, oriented x 3, clear to auscultation bilaterally and regular rate & rhythm Airway Mallampati: Class II Dentition: full Metabolic Thyroid Disease 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 linda for the past three months. Will avoid medications and maneuvers that increase intraocular pressure or ICP Anesthetic Plan ASA status: 3 Anesthesia: General Risk of > 500 ml blood loss (7ml/kg in children): No Medications/Allergies Home Medications Medication Instructions Recorded Confirmed Last Taken Type levothyroxine 50 mcg PO DAILY 08/21/19 06/02/22 06/03/22 History cyclobenzaprine 10 mg tablet 10 mg PO PRN PRN Migraine Headache 02/01/22 06/03/22 04/22/22 History topiramate 25 mg tablet (Topamax) 25 mg PO DAILY 02/01/22 06/02/22 06/03/22 History sertraline 100 mg tablet 100 mg PO DAILY #30 tabs 03/01/22 06/02/22 06/03/22 Rx hydrocodone 10 mg-acetaminophen 1 tab PO Q4H PRN Pain 06/02/22 06/02/22 06/02/22 History 325 mg tablet Allergies Allergy/AdvReac Type Severity Reaction Status Date / Time No Known Allergies Allergy Verified 06/02/22 15:34 [facility] Anesthesia Medical History (Updated 05/28/22 @ 11:06 by Ihsan Thomason MD) Acute lymphadenitis of arm Neck mass Request for sterilization Surgical History History of bilateral tubal ligation (08/31/19) [facility] - Dr. Bo History of removal of thyroglossal duct cyst No history of previous surgery Family History Family/Other Breast cancer maternal aunt Mother Diabetes Thyroid condition Father Hypertension Brother Hypertension Social History Smoking and tobacco status: former smoker Quit status (tobacco): has quit using tobacco Year quit tobacco: 2019 Alcohol intake: never Female Reproductive History Date of last menstrual period: 05/20/22 Data Anesthesia Cardiac Studies: No Data to Display
--- NOTE | 2022-06-03 08:55 | W.PM.OPSUD ---
Surgery/Procedure H&P Update DATE OF PROCEDURE: June 03, 2022 DATE H&P PERFORMED: 05/10/22 H&P UPDATE INFORMATION: I have reviewed H&P completed within last 30 days, I have examined patient prior to procedure and No changes to prior documentation CHANGES TO PREVIOUS DOCUMENTATION: No changes PREOP DIAGNOSIS: Thyroglossal duct cyst/recurrent/multiple right neck masses PRIMARY INDICATION FOR PROCEDURE: Recurrent multilobulated thyroglossal duct cyst. PLANNED PROCEDURE: Operation Date: 06/03/22 09:00 Proposed Procedures p [id number] - revision of gennaro procedure Q89.2(Not Applicable) - Ihsan Thomason MD
[2022-06-03] MEDS: sodium chloride 0.9% 1,000 ML 30 ML IV (08:59)
[2022-06-03 09:08] LABS: OR HCG Qualitative Urine Negative (Negative)
[2022-06-03] MEDS: ceFAZolin 2,000 MG in sodium chloride 0.9% (plus) 50 ML 100 MG IV (09:31)
--- NOTE | 2022-06-03 11:39 | PM.OP ---
Operative Report Date of procedure: June 03, 2022 Pre-op diagnosis: Preop Diagnosis Thyroglossal duct cyst/recurrent/multiple right neck masses Post-op diagnosis: Multilobulated thyroglossal duct cyst Post-op findings: Cysts with attachment to the hyoid bone to the base of tongue. Procedure done: Revision Lala procedure with removal of multiple cysts and central hyoid bone and tract. Implants: Quarter inch Mary drain Specimens removed/disposition: Thyroglossal duct cysts tract and central hyoid bone Pathology: Same Surgeon: Ihsan Thomason MD Anesthesia: General and Local Estimated blood loss: 50 mL Complications: No complications encountered Findings: Patient noted to have increasing swelling in the suprahyoid area more to the right side of midline. Repeat CAT scan showed multilobulated thyroglossal duct cyst recurrence. Patient being brought to the operating room at this time to undergo revision Lala procedure and removal of these multilobulated cysts. Brief History: 31-year-old female patient previously had ruptured thyroglossal duct cyst excised removing as much cyst lining as was identifiable. The small central portion of the hyoid bone was taken with that. It was very likely that the patient was going to have recurrence because of the ruptured nature of the previous cyst. End time in fact the neck masses recurred and started causing discomfort from time to time. They would inflate and deflate with cystic contents. CT scan was done to confirm the current situation and location of the cyst. There were cysts between the base of tongue hyoid bone inferior to the hyoid bone and to the right side of midline. Patient is being brought to the operating room at this time to undergo excision of these recurrent cysts and a larger portion of the hyoid bone and the tract to the base of tongue. Patient also was noted to have bilateral thyroid cysts. These did not appear suspicious and these were not going to be addressed during this procedure. The procedure its risks and complications were understood. Informed consent was granted. The risks included bleeding infection numbness scarring swelling bruising recurrence need for additional treatment potential weakness of the lower face tongue and voice which could be temporary or permanent. More serious risks associated with anesthesia included heart attack stroke or not surviving the surgery. Patient understood that a drain would be placed and dressing would be applied for pressure. Informed consent was obtained and witnessed. Procedure: Description of procedure: The patient was placed on the operating table in the supine position. After adequate general endotracheal tube anesthesia was obtained she was repositioned into a semirecumbent position. A timeout was accomplished identifying the patient date of plan procedure allergies fire risk and medications given. With all in agreement the procedure continued. Neck was tilted back elevating the chin to the superior position. Previous incision was identified. The area of this incision was cleansed with alcohol. Then a total of 3.4 mL of 2% Xylocaine with 1-100,000 epinephrine was used to infiltrate the planned incision. It was planned that the previous scar would be resected with the incision being created. Patient was then prepped and draped in usual fashion. A marking pen was used to outline the curvilinear incision in the neck skin crease line and incorporating the previous scar. A 15 blade was used to incise along the designed curvilinear incision. The previous scar was included in the incision as an island of skin in the central portion of the incision line. This was disposed of. The specimen was not sent to pathology. As the dissection was carried down to subcutaneous fat layer dissection was done carefully layer by layer and bipolar cautery and needle tip Bovie were used to cut through the tissue and obtain hemostasis as the dissection proceeded. The dissection was then carried down through the platysma muscle. It was then carried superiorly subplatysmal he. This allowed for exposure of the strap muscles and up to the region of the hyoid bone. Dissection was carried out on the right side of midline to make sure that we are incorporating the right cystic mass. I did in fact dissect down to the submandibular gland preserving the marginal mandibular branch of the facial nerve. There was definitely no cyst in the submandibular triangle. Then the dissection was carried more anteriorly and medially. The strap muscles were identified in the median raphae and dissection carried up to the attachment of the hyoid bone. The strap muscles were split at that point and this uncovered multiple cysts. One did rupture and drained during this portion. At least one was definitely kept intact. Careful dissection was carried down to the free epiglottic soft tissues and then carried superiorly to the undersurface of the hyoid bone. The hyoid bone was pared bilaterally and bone cutters were used to cut through the hyoid bone laterally. Then the dissection was carried around the superior aspect of the hyoid bone and also inferiorly and deep to include the cysts and the tract up to the base of the tongue. Then 4 large clips were placed to assure that this was sealed off from the tract at the base of the tongue. No dehiscence into the hypopharyngeal or laryngeal space occurred. The specimen was resected and sent to pathology for permanent section. The area was irrigated with sterile water. Then inspection was carried out to make sure that there was no other potential cyst deep to the strap muscles. 1/4 inch [place] drain was placed to the depths in the suprahyoid area into the base of the tongue. Then the strap muscles were closed medially and the lateral hyoid bone tissues were closed over the defect. Then the platysma layer and subcutaneous layer were closed in 1 layer with interrupted 4-0 chromic. Then the skin was closed with running subcuticular 5-0 nylon. The Mary drain was sutured to the neck with a 5-0 nylon inferiorly. Pressure was applied after cleansing the neck. No active bleeding was encountered. Neosporin ointment was applied over the incision at the drain site. Then fluffs were placed and 2 Kerlix rolls were placed around the neck for pressure. The drapes were removed and the patient was returned to anesthesia for wake-up and extubation. She tolerated the procedure well and estimated blood loss of 50 mL or less and arrived in recovery in stable condition.
[2022-06-03] MEDS: neomycin-poly-bacitracin oint 28 gm 1 APPLIC TOPICAL (11:42)
[2022-06-03] MEDS: fentaNYL 50 mcg/mL INJ 2mL IVP (12:08)
[2022-06-03] MEDS: HYDROcodone-acetaminophen 10-325 mg Tablet 1 TAB PO (13:04)
[2022-06-03] MEDS: ondansetron 2 mg/ML SDV 2 mL 4 MG IVP (13:04)
--- NOTE | 2022-06-03 14:10 | ANE.PACU2 ---
Inpatient post-anesthesia follow up: Airway intact: Yes Vital signs: Temperature 98.5 F Pulse Rate 66 Respiratory Rate 14 Blood Pressure 115/81 Pulse Oximetry 96 Oxygen Delivery Me thod Room Air Oxygen Flow Rate 2 Fraction of Inspir ed Oxygen Hydration adequate: Yes Nausea and vomiting: No Pain level: 1 Mental status: Baseline
== END 2022-06-03 13:45 | disposition home or self-care (01) ==
PROVIDERS: Anesthesiology; PCP Family Medicine; Visit Provider Otolaryngology
PROC: (CPT 60280; principal; 2022-06-03 08:50)
DX: Q89.2 Congenital malformations of other endocrine glands (principal); G93.5 Compression of brain; Z87.891 Personal history of nicotine dependence
CPT/HCPCS: 60280; 84703; 88307; J0131; J0690; J1100; J2370; J2405; J3010; J3490; J7030

== ENCOUNTER 2022-08-05 11:40 | Outpatient (CLI) | payer MEDICAID, SELFPAY ==
--- NOTE | 2022-08-05 11:50 | XR_ITS ---
WS: [id number] Acute abdomen series, 4 views, 08/05/2022 Clinical Data: rectal bleeding Comparison: None. Findings: In the chest there are no nodules, masses or effusions. The heart is normal. The pulmonary vascularity is not increased. No pneumonia or pneumothorax is seen. No free air is seen beneath the diaphragms. No abnormal intra-abdominal masses or calcifications are seen. There is a moderate amount of fecal material throughout the colon. XR/XR acute abdomen series [id number] Impression: Negative acute abdomen series.
== END 2022-08-05 11:41 | disposition home or self-care (01) ==
LOC: RAD 11:43
PROVIDERS: PCP Family Medicine; Visit Provider Clinical Nurse Specialist Adult Health
DX: K62.5 Hemorrhage of anus and rectum (principal)
CPT/HCPCS: 74022

== ENCOUNTER 2022-08-10 12:18 | Outpatient (CLI) | payer MEDICAID, SELFPAY ==
--- NOTE | 2022-08-10 12:15 | CT_ITS ---
WS: [id number] CT ABDOMEN PELVIS TECHNIQUE: Noncontrast CT of the abdomen and pelvis with coronal and sagittal reformatted images. CLINICAL INFORMATION: rectal bleeding and LLQ and periumbilical abdominal pain COMPARISON: None. DLP: 552.[address] scans at [facility] use at least one of these dose optimization techniques: automated e xposure control; mA and/or kV adjustment per patient size (includes targeted exams where dose is matc hed to clinical indication); or iterative reconstruction. FINDINGS: Enlarged RIGHT hepatic lobe. Hepatomegaly. Noncontrast liver is normal. Normal noncontrast spleen. No rmal GE junction. Tiny esophageal hiatal hernia. Lung bases are well aerated. Adrenal glands are norm al. No hydronephrosis in either kidney. No obstructing renal or ureteral calculi. Normal sigmoid colon. Mild fecal retention in the RIGHT colon and transverse colon. No free fluid in the abdomen or pelvis. Endometrial thickening physiologic in a patient this age. Normal caliber abdom inal aorta. No periaortic or retroperitoneal lymphadenopathy. No inguinal lymphadenopathy. Fat-contai buster umbilical hernia. CT/CT abdomen pelvis wo con [id number] IMPRESSION: 1. Mild hepatomegaly. 2. No hydronephrosis in either kidney. No obstructing renal or ureteral calcul i. 3. Mild constipation in the RIGHT colon and transverse colon. 4. Normal appendix in the RIGHT lower quadrant. No evidence of acute appendici tis. 5. Normal sigmoid colon. 6. Tiny esophageal hiatal hernia. 7. No other remarkable findings.
== END 2022-08-10 12:19 | disposition home or self-care (01) ==
LOC: RAD 12:19
PROVIDERS: PCP Family Medicine; Visit Provider Clinical Nurse Specialist Adult Health
DX: K62.5 Hemorrhage of anus and rectum (principal); R16.0 Hepatomegaly, not elsewhere classified; K59.00 Constipation, unspecified; K44.9 Diaphragmatic hernia without obstruction or gangrene
CPT/HCPCS: 74176; 85025

== ENCOUNTER → 2022-08-19 10:05 | Outpatient (BNVA) | payer MEDICAID, SELFPAY | PROVIDERS: PCP Family Medicine; Visit Provider Family Medicine | DX: Q07.00 Arnold-Chiari syndrome without spina bifida or hydrocephalus (principal); R51.9 Headache, unspecified; K62.5 Hemorrhage of anus and rectum; E03.9 Hypothyroidism, unspecified | CPT/HCPCS: 80053; 84443; 85025 ==

== ENCOUNTER 2023-12-30 16:13 | Emergency (ER) | payer MEDICAID, SELFPAY ==
[2023-12-30 16:17] VITALS: BP 139/92; PULSE 83; RESP 18; TEMP 36.4; O2SAT 95
--- NOTE | 2023-12-30 16:47 | W.ED.ANIMALB ---
HPI - Animal Bite General: Chief Complaint: Animal Bite Stated Complaint: dog bite Time Seen by Provider: 12/30/23 16:18 History of Present Illness: HPI: Patient was bit in various places on lower extremities including the left foot, left calf, and right wade by dogs that ran out of a house. The fire extinguisher inspector states that the dogs are up-to-date on rabies though unsure if yearly or lifetime vaccination. Dogs seem to be behaving normally otherwise. Please have been contacted for coordination of care with health department for rabies observation. Patient would like rabies prophylaxis. ROS: 10 systems reviewed and otherwise unremarkable except for those noted in HPI. Physical Exam: Triage vital signs reviewed General: No acute distress, cooperative and comfortable HEENT: Normocephalic, atraumatic, external ears normal, moist mucous membranes, PERRLA. Chest: Normal inspection, equal rise and fall, no edema Respiratory: Normal respiratory effort, no atypical respiratory sounds GI: Non-tender to palpation, non-distended, Extremities: Moving all 4 extremities easily, no deformities Neuro: No meningeal signs, motor function in the room without abnormalities, sensation intact Skin: Superficial abrasions without obvious puncture to aforementioned areas. Procedures: N/A MDM: Considered diagnoses include but are not limited to infection risk, rabies risk, deep structure injury. Vital signs nonactionable. Based on history, exam, no deep structure injury identified. Patient with dog bite and scratch wounds indication for rabies vaccine and prophylaxis. Prescribed Augmentin for infection prophylaxis. Last tetanus was 4 years ago. Patient educated about reasons to return to the emergency department including signs of ongoing or changing condition. Advised to make an appointment with primary care or to establish care with a primary care provider to review all results from this encounter. This note was written with assistance of dictation software. Contact author for any clarification of typos. Rc Boyd MD [facility] ED PFSH: Medical History Acute lymphadenitis of arm Neck mass Request for sterilization Surgical History History of bilateral tubal ligation (08/31/19) [facility] - Dr. Bo History of removal of thyroglossal duct cyst No history of previous surgery Family History Family/Other Breast cancer maternal aunt Mother Diabetes Thyroid disease Father Hypertension Brother Hypertension Social History Smoking and tobacco/nicotine status: former use of tobacco/nicotine Quit status (tobacco/nicotine): has quit using Year quit tobacco: 2019 Alcohol intake: never Substance/Drug Use: never Course Vital Signs: Vital signs: Vital Signs Temperature 97.6 F 12/30/23 16:17 Pulse Rate 83 12/30/23 16:17 Respiratory Rate 18 12/30/23 16:17 Blood Pressure 139/92 12/30/23 16:17 Pulse Oximetry 95 12/30/23 16:17 Oxygen Delivery Me thod Room Air 12/30/23 16:17 MDM - Animal Bite Medical Decision Making see mdm No radiology studies performed this visit Discharge Plan Discharge Patient Disposition: Home Clinical Impression: Bite by animal Condition: Stable Prescriptions: New amoxicillin-pot clavulanate [Augmentin XR] 1,000-62.5 mg tablet extended release 12 hr 1 tab PO BID 5 Days Qty: 10 0RF No Action cyclobenzaprine 10 mg tablet 10 mg PO PRN PRN (Reason: Migraine Headache) topiramate [Topamax] 25 mg tablet 25 mg PO DAILY hydrocortisone-pramoxine [Analpram-HC] 2.5-1 % cream 1 applic MO QID PRN (Reason: hemorrhoids) Qty: 30 1RF levothyroxine 50 mcg capsule 50 mcg PO DAILY Qty: 90 1RF sertraline 100 mg tablet 100 mg PO DAILY Qty: 30 5RF hydrocodone-acetaminophen 10-325 mg tablet 1 tab PO Q4H PRN (Reason: Pain) oxycodone-acetaminophen 10-325 mg tablet 2 tab PO Q4-5H PRN (Reason: pain) Qty: 45 0RF Discharge Orders: Discharge ED (Routine); Ordered 12/30/23 Ordered By: Rc Boyd Referrals: Mohinder Moffett DO [Primary Care Provider] - Discharge Diet: Advance as tolerated Discharge Activity: Resume usual activity Patient Instructions: Opioid Safety, Pain Management Activity Restrictions/Additional Instructions: You require repeat vaccinations on day 3, 7, and 14. Today is day 0. It has been a pleasure caring for you in the emergency department. Please ensure that you follow-up with your primary care physician for review of all data obtained during this encounter including any incidental findings and laboratory values. Keep in mind that if your condition changes in any way I recommend that you return to the emergency department for repeat evaluation. Coding Level of Care Code ED Laboratory Inspector for Bakari Joseph
[2023-12-30] MEDS: rabies IG 300 unit/mL SDV 1 mL 1820 UNIT IM (17:41)
[2023-12-30] MEDS: rabies vaccine 2.5 unit SDV IM (17:41)
[2023-12-30 18:13] VITALS: BP 137/93; PULSE 81; RESP 16; TEMP 36.4; O2SAT 97
== END 2023-12-30 18:14 | disposition home or self-care (01) ==
PROVIDERS: Emergency Provider General Practice; PCP Family Medicine
DX: Z29.14 Encounter for prophylactic rabies immune globulin (principal); Z20.3 Contact with and (suspected) exposure to rabies; Z23 Encounter for immunization; W54.0XXA Bitten by dog, initial encounter; Z87.891 Personal history of nicotine dependence
CPT/HCPCS: 90375; 90675; 99283; 99291

== ENCOUNTER 2024-01-16 10:04 | Oncology outpatient (recurring) (ONCR) | payer MEDICAID, SELFPAY ==
[2024-01-02] MEDS: rabies vaccine 2.5 unit SDV IM (16:29)
[2024-01-06] MEDS: rabies vaccine 2.5 unit SDV IM (10:25)
[2024-01-06 10:39] VITALS: BP 118/79; PULSE 75; RESP 16; TEMP 36.4; O2SAT 99
[2024-01-16] MEDS: rabies vaccine 2.5 unit SDV IM (10:15)
[2024-01-16 10:20] VITALS: BP 105/70; PULSE 82; RESP 16; TEMP 36.7; O2SAT 98
== END 2024-01-18 23:59 | disposition home or self-care (01) ==
PROVIDERS: PCP Family Medicine; Visit Provider General Practice
DX: Z20.3 Contact with and (suspected) exposure to rabies (principal); Z53.9 Procedure and treatment not carried out, unspecified reason; Z23 Encounter for immunization; S91.352A Open bite, left foot, initial encounter; S81.852A Open bite, left lower leg, initial encounter; S81.851A Open bite, right lower leg, initial encounter; W54.0XXA Bitten by dog, initial encounter
CPT/HCPCS: 90471; 90675

== ENCOUNTER → 2024-04-10 10:19 | Outpatient (BNVA) | payer MEDICAID, SELFPAY | PROVIDERS: PCP Family Medicine; Visit Provider Family Medicine | DX: Z51.81 Encounter for therapeutic drug level monitoring (principal); Z13.220 Encounter for screening for lipoid disorders; E55.9 Vitamin D deficiency, unspecified; E03.9 Hypothyroidism, unspecified; E53.8 Deficiency of other specified B group vitamins | CPT/HCPCS: 80053; 80061; 82306; 82607; 84439; 84443; 85025 ==

== ENCOUNTER 2024-05-03 10:39 | Outpatient (CLI) | payer MEDICAID, SELFPAY ==
--- NOTE | 2024-05-03 10:45 | US_ITS ---
WS: [id number] THYROID ULTRASOUND HISTORY: Thyroid nodules COMPARISON: 06/30/2021, 05/29/2019 Right lobe: 2.1 cm x 1.8 cm x 5.7 cm (w x ap x l). Volume: 10.4 cm3. Enlarged heterogeneous nodular thyroid similar to the prior study. There are multiple cystic nodules. 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 One of the cystic nodules contains a mural nodule which was present on prior studies and has undergone prior biopsy. Largest nodule measures 2.0 x 1.2 x 2.7 cm within t he mid to lower pole. Similar in appearance to the 2021 exam. Left lobe: 1.6 cm x 1.6 cm x 4.5 cm (w x ap x l). Volume: 5.5 cm3. Mildly heterogeneous thyroid. There are several small nodules scattered throughout the thyroid. Large st nodule in the gland measures 1.0 x 0.6 x 1.2 cm. Isthmus: 0.2 cm. US/US thyroid [id number] IMPRESSION: 1. Heterogeneous gland with multiple nodules as above. Similar to the study of 06/30/2021. 2. The most concerning cyst with mural nodule in the RIGHT thyroid has undergo ne prior biopsy.
== END 2024-05-03 10:40 | disposition home or self-care (01) ==
LOC: RAD 10:40
PROVIDERS: PCP Family Medicine; Visit Provider Family Medicine
DX: E04.2 Nontoxic multinodular goiter (principal)
CPT/HCPCS: 76536

== ENCOUNTER 2024-05-04 09:00 | Emergency (ER) | payer MEDICAID, SELFPAY ==
[2024-05-04 09:30] VITALS: BP 118/75; PULSE 97; RESP 17; TEMP 36.8; O2SAT 100; BMI 32.5
[2024-05-04 10:07] LABS: Basophils % 0.3 %; Eosinophils # 0.1 10^3/uL (0.0-0.8); Eosinophils % 0.9 %; Hematocrit 41.1 % (36-47); Lymphocytes # 2.4 10^3/uL (0.8-4.8); Lymphocytes % 25.2 %; Mean Corpuscular HGB Conc 32.4 g/dL (30-55); Mean Corpuscular Hemoglobin 28.7 pg (27-33); Mean Corpuscular Volume 88.6 fl (85-98); Mean Platelet Volume 9.2 fL (7.4-10.4); Monocytes # 0.5 10^3/uL (0.2-0.9); Monocytes % 5.5 %; Neutrophils # 6.38 10^3/uL (1.8-7.7); Neutrophils % 67.9 %; Nucleated Red Blood Cells % 0 %; Platelet Count 288 10^3/cmm (157-399); Red Blood Count 4.64 10^6/uL (3.85-5.65); Red Cell Distribution Width 12.1 % (12.1-15.1)
--- NOTE | 2024-05-04 10:18 | CT_ITS ---
WS: [id number] CT ABDOMEN AND PELVIS WITH CONTRAST HISTORY: periumbilical and R sided ab pain TECHNIQUE: Imaging performed of the abdomen and pelvis with IV contrast. Single phase imaging of the abdomen. Coronal and sagittal reformats are submitted. All CT scans at [facility] use at [address] one of these dose optimization techniques: automated exposure control; mA and/or kV adjustment per patient size (includes targeted exams where dose is matched to clinical indication); or iterative re construction. IV CONTRAST: Omnipaque 350; 100 mL IV. Oral contrast: No DLP: 731.59 mGy.cm COMPARISON: 08/10/2022 Lower thorax: Lung bases are clear. Heart is normal size. No hiatal hernia. Liver/biliary system: Normal size with no intrahepatic dilatation. Gallbladder: Normal. No gallstones or wall thickening. No pericholecystic fluid. Pancreas: Normal size pancreas and pancreatic duct. No adjacent inflammation. Spleen: Normal size spleen. No mass or infarct. Adrenal glands: Normal. Right kidney: Normal. Left kidney: Normal. Aorta: Normal. Lymphadenopathy: None. Free fluid: None. GI tract: Nondistended stomach. No small bowel obstruction. There is a single mildly prominent loop o f small bowel in the proximal jejunum. No intussusception or mass identified. There is very mild asym metric wall thickening to 7 mm. Normal appendix. Mild diffuse constipation. Abdominal wall: Unremarkable abdominal wall. No hernia. Pelvis: No free fluid or adenopathy within the pelvis. Uterus is anteriorly positioned. Bulky low-att enuation within the cervix. Mild fluid distention of the endometrium. No ovarian mass. Bones: Unremarkable. CT/CT abdomen pelvis w con* [id number] IMPRESSION: 1. Normal appendix. 2. No GI tract obstruction. There is a single short segment loop of proximal j ejunum which is fluid-filled. May be an response of enterocolitis or sentinel l oop. There is no inflammation. The remaining small bowel is normal. 3. No ascites or adenopathy. 4. No renal obstruction. 5. Bulky cervix with decreased attenuation. Suggest transvaginal pelvic ultras ound evaluation to better evaluate the cervix. This can be done as an outpatien t and is nonurgent.
--- NOTE | 2024-05-04 10:18 | ED_ITS ---
HPI - Abdominal Pain 2 General: Chief Complaint: Abdominal Pain Stated Complaint: abd pain for 16 hours Time Seen by Provider: 05/04/24 09:40 Source: patient Mode of arrival: ambulatory Limitations: no limitations History of Present Illness: Patient is a nice 33-year-old female presents to ED today with complaint of abdominal pain. Patient states yesterday evening she began feeling like her abdomen was sore. She states the pain intensified throughout the night and got very little sleep due to significant discomfort. She described pain around her periumbilical region radiating into her right abdomen. She states she could not find a comfortable position throughout the night. She states this morning pain persisted although did ease off slightly. She has reported fairly normal bowel movements. She is not having any urinary symptoms. Last menstrual period started yesterday. No history of ovarian cysts. Previous abdominal surgeries include a tubal ligation. Vital signs are stable upon arrival. She is not having any flank pain. MD elicited complaint: abdominal pain Pertinent past history: none Onset (ago): hour(s) Pain Consistency: constant Location: Periumbilical, RUQ and RLQ Severity: moderate Radiation: none Migration to: no migration Exacerbating factors: nothing Relieving factors: nothing Associated Symptoms: Reports nausea; Denies change in bowel habits, chills, dysuria, fever(s) and vomiting Related Data Previous Rx's Medication Instructions Recorded levothyroxine 50 mcg capsule 50 mcg PO DAILY #90 caps 08/11/23 citalopram 20 mg tablet 20 mg PO DAILY #30 tabs 04/10/24 topiramate 25 mg tablet (Topamax) 25 mg PO DAILY #30 tabs 04/10/24 ciprofloxacin HCl 500 mg tablet 500 mg PO Q12H #14 tabs 05/04/24 (Cipro) hydrocodone 5 mg-acetaminophen 325 1 tab PO Q6H PRN pain #14 tabs 05/04/24 mg tablet ondansetron 4 mg disintegrating 4 mg PO Q8H PRN nausea and 05/04/24 tablet vomiting #14 tabs Allergies Allergy/AdvReac Type Severity Reaction Status Date / Time No Known Allergies Allergy Verified 05/04/24 09:33 Review of Systems 2 Const: Denies: fever(s), chills, body aches, fatigue or malaise Card: Denies: chest pain Resp: Denies: dyspnea GI: Reports: abdominal pain and nausea; Denies: vomiting or change in bowel habits : Reports: vaginal bleeding (started menstrual cycle yesterday); Denies: flank pain, dysuria or vaginal discharge Musc: Denies: neck pain, back pain, extremity pain, extremity swelling, joint pain or joint swelling Skin/Breast: Denies: rash Neuro: Denies: headache(s) or dizziness PFSH ED 2 PFSH: Medical History Neck mass Acute lymphadenitis of arm Request for sterilization Surgical History History of removal of thyroglossal duct cyst History of bilateral tubal ligation (08/31/19) [facility] - Dr. Bo Family History Family/Other Breast cancer maternal aunt Mother Diabetes Thyroid disease Father Hypertension Brother Hypertension Social History Smoking and tobacco/nicotine status: former use of tobacco/nicotine Quit status (tobacco/nicotine): has quit using Year quit tobacco: 2019 Alcohol intake: current Alcohol intake frequency: holidays/special occasions only Substance/Drug Use: never Current occupation: Homemaker Physical Exam 2 Const: COMMON NORMALS: no acute distress, average body habitus, patient oriented x3, no limitations, healthy appearing, alert and well nourished Eye: COMMON NORMALS: no scleral icterus Resp: COMMON NORMALS: normal respiratory effort and clear to auscultation bilaterally AUSCULTATION: clear to auscultation bilaterally Cardio: COMMON NORMALS: regular rate and regular rhythm RATE: regular rate RHYTHM: regular rhythm GI: COMMON NORMALS: Normal to inspection, nondistended, normoactive bowel sounds present, Soft to palpation, No hepatosplenomegaly present and no masses INSPECTION: Yes normal to inspection AUSCULTATION: Yes normoactive bowel sounds PALPATION: Yes Soft to palpation, Yes Tenderness to palpation present (GI) (periumbilical and throughout R side of abdomen), No Guarding due to palpation present (GI), No Rigid due to palpation and Yes No hepatosplenomegaly present : COMMON NORMALS: Yes no CVA tenderness BLADDER/KIDNEY EXAM: Yes no CVA tenderness Back/Pelvis: COMMON NORMALS: no CVA tenderness Extremity: GENERAL: Yes normal exam except as noted Neuro: COMMON NORMALS: patient oriented x3, moves all extremities, no focal motor deficits, no sensory deficits noted and gait normal S ENSORIUM/ORIENTATION: Yes alert Skin: COMMON NORMALS: no rashes or lesions noted GENERAL SKIN EXAM: no rashes or lesions noted Course 2 Vital Signs: Vital signs: Vital Signs Temperature 98.3 F 05/04/24 09:30 Pulse Rate 83 05/04/24 11:00 Respiratory Rate 17 05/04/24 10:39 Blood Pressure 103/70 05/04/24 11:00 Pulse Oximetry 98 05/04/24 11:00 Oxygen Delivery Me thod Room Air 05/04/24 11:00 MDM - Abdominal Pain Medical Decision Making Patient is a 33-year-old female here with complaints of abdominal pain. Vital signs are stable upon arrival. Her blood work showing a normal white count. Remainder of blood work is unremarkable. She is currently on her menstrual cycle so UA showing hematuria. UA does appear acutely infected with 2+ leukocyte esterase and 55-80 WBCs. Does not appear contaminated as there was 0- 4 squamous. She will be covered with antibiotics for this. Her CT scan showing some incidental findings of a single short segment loop of proximal jejunum which is fluid-filled could be a response to an enterocolitis. Her kidneys appeared normal. Bulky cervix decreased attenuation with recommendations for outpatient nonemergent ultrasound. She states she will follow-up with her primary care provider for this. She is due for a PAP smear/well women's exam. Medical Records I reviewed the patient's medical records. Lab Data I reviewed the patient's lab results. 05/04/24 10:03 05/04/24 10:03 Labs/Radiology: Radiology Impressions Abdomen/Pelvis CT 05/04/24 10:18 IMPRESSION: 1. Normal appendix. 2. No GI tract obstruction. There is a single short segment loop of proximal jejunum which is fluid-filled. May be an response of enterocolitis or sentinel loop. There is no inflammation. The remaining small bowel is normal. 3. No ascites or adenopathy. 4. No renal obstruction. 5. Bulky cervix with decreased attenuation. Suggest transvaginal pelvic ultrasound evaluation to better evaluate the cervix. This can be done as an outpatient and is nonurgent. Laboratory Results WBC 9.40 10^3/uL (3.29-11.43) 05/04/24 10:03 RBC 4.64 10^6/uL (3.85-5.65) 05/04/24 10:03 Hgb 13.30 g/dL (11.27-16.99) 05/04/24 10:03 Hct 41.1 % (36-47) 05/04/24 10:03 MCV 88.6 fl (85-98) 05/04/24 10:03 MCH 28.7 pg (27-33) 05/04/24 10:03 MCHC 32.4 g/dL (30-55) 05/04/24 10:03 RDW 12.1 % (12.1-15.1) 05/04/24 10:03 Plt Count 288 10^3/cmm (157-399) 05/04/24 10:03 MPV 9.2 fL (7.4-10.4) 05/04/24 10:03 Neut % (Auto) 67.9 % 05/04/24 10:03 Lymph % (Auto) 25.2 % 05/04/24 10:03 Franklin % (Auto) 5.5 % 05/04/24 10:03 Eos % (Auto) 0.9 % 05/04/24 10:03 Baso % (Auto) 0.3 % 05/04/24 10:03 Neut # (Auto) 6.38 10^3/uL (1.8-7.7) 05/04/24 10:03 Lymph # (Auto) 2.4 10^3/uL (0.8-4.8) 05/04/24 10:03 Franklin # (Auto) 0.5 10^3/uL (0.2-0.9) 05/04/24 10:03 Eos # (Auto) 0.1 10^3/uL (0.0-0.8) 05/04/24 10:03 Baso # (Auto) 0.0 10^3/uL (0.0-0.1) 05/04/24 10:03 Nucleated RBC % (auto) 0 % 05/04/24 10:03 Nucleated RBCs # 0.0 /100WBC 05/04/24 10:03 Sodium 138 mmol/L (136-145) 05/04/24 10:03 Potassium 4.0 mmol/L (3.5-5.1) 05/04/24 10:03 Chloride 104 mmol/L (98-107) 05/04/24 10:03 Carbon Dioxide 22 mmol/L (22-29) 05/04/24 10:03 Anion Gap 16.0 (5-19) 05/04/24 10:03 BUN 9 mg/dL (6-20) 05/04/24 10:03 Creatinine 0.7 mg/dL (0.5-0.9) 05/04/24 10:03 GFR Calculation 95.8 mL/min (90-130) 05/04/24 10:03 Glucose 92 mg/dL (65-115) 05/04/24 10:03 Calculated Osmolality 284 mOsm/kg (285-295) L 05/04/24 10:03 Calcium 8.9 mg/dL (8.5-10.5) 05/04/24 10:03 Total Bilirubin 0.4 mg/dL (0.15-1.2) 05/04/24 10:03 AST 12 U/L (0-32) 05/04/24 10:03 ALT 11 U/L (0-33) 05/04/24 10:03 Alkaline Phosphatase 71 U/L (35-105) 05/04/24 10:03 Total Protein 6.8 g/dL (6.6-8.7) 05/04/24 10:03 Albumin 4.5 g/dL (3.5-5.2) 05/04/24 10:03 Globulin 2.3 g/dL (1.3-4.6) 05/04/24 10:03 Lipase 37 U/L (13-60) 05/04/24 10:03 HCG, Qual Negative (Negative) 05/04/24 10:03 Urine Color Red (Yellow) A 05/04/24 10:30 Urine Appearance Turbid (CLEAR) A 05/04/24 10:30 Urine pH 7.5 (5-7) 05/04/24 10:30 Ur Specific Howard 1.021 (1.005-1.030) 05/04/24 10:30 Urine Protein 2+ (Negative) A 05/04/24 10:30 Urine Glucose (UA) Negative (Normal) 05/04/24 10:30 Urine Ketones Negative (Negative) 05/04/24 10:30 Urine Blood 3+ (Negative) A 05/04/24 10:30 Urine Nitrate Negative (Negative) 05/04/24 10:30 Urine Bilirubin 1+ (Negative) H 05/04/24 10:30 Urine Urobilinogen 0.2 mg/dL (Negative) 05/04/24 10:30 Ur Leukocyte Esterase 2+ (Negative) A 05/04/24 10:30 Urine RBC >100 /hpf (0-2) H 05/04/24 10:30 Urine WBC 55-80 /hpf (0-5) H 05/04/24 10:30 Ur Squamous Epith Cells 0-4 /hpf (0-5) H 05/04/24 10:30 Amorphous Sediment Trace /hpf 05/04/24 10:30 Urine Bacteria 1+ /hpf (NONE) H 05/04/24 10:30 Hyaline Casts 0-4 /lpf H 05/04/24 10:30 Urine Mucus Trace /hpf 05/04/24 10:30 All radiology interpretation(s) finalized by discharge Discharge Plan Discharge Patient Disposition: Home Clinical Impression: Acute cystitis Qualifiers: Hematuria presence: with hematuria Qualified Code(s): N30.01 - Acute cystitis with hematuria Condition: Stable Prescriptions: New ciprofloxacin HCl [Cipro] 500 mg tablet 500 mg PO Q12H Qty: 14 0RF hydrocodone-acetaminophen 5-325 mg tablet 1 tab PO Q6H PRN (Reason: pain) Qty: 14 0RF ondansetron 4 mg tablet,disintegrating 4 mg PO Q8H PRN (Reason: nausea and vomiting) Qty: 14 0RF No Action citalopram 20 mg tablet 20 mg PO DAILY Qty: 30 3RF topiramate [Topamax] 25 mg tablet 25 mg PO DAILY Qty: 30 3RF levothyroxine 50 mcg capsule 50 mcg PO DAILY Qty: 90 1RF Discharge Orders: Discharge ED (Routine); Ordered 05/04/24 Ordered By: Dian Wu Referrals: Aric Cordon MD [Primary Care Provider] - Patient Instructions: Urinary Tract Infection in Women (DC) Activity Restrictions/Additional Instructions: As we discussed, your blood work here is unremarkable. Your urine was very suspicious for infection with a large amount of white blood cells. You will be placed on antibiotics for this. We will culture your urine for definitive confirmation. Your CT scan overall was fairly unremarkable. Your appendix was normal. There was a small section involving your small intestine which could be related to enterocolitis-this is usually self-limiting. Your kidneys appeared normal. We did speak about an incidental finding regarding your cervix. This could be due to you currently on your menstrual cycle. Radiologist did recommend a nonemergent outpatient pelvic ultrasound. This can be discussed with Dr. Cordon as you have indicated you are due for your well woman exam/Pap smear. We discussed return precautions to the emergency department over the weekend including worsening pain, repetitive episodes of vomiting, inability to hold down your antibiotics, fevers, generally feeling worse or unwell, or any other concerns you may have. Hope you begin to feel better soon. Coding Level of Care Code ED Certified Physician Assistant for Bakari Joseph
[2024-05-04 10:22] LABS: HCG, Serum Qual Negative (Negative)
[2024-05-04 10:24] LABS: Alanine Aminotransferase 11 U/L (0-33); Albumin Level 4.5 g/dL (3.5-5.2); Alkaline Phosphatase 71 U/L (35-105); Aspartate Amino Transferase 12 U/L (0-32); Blood Urea Nitrogen 9 mg/dL (6-20); Calcium 8.9 mg/dL (8.5-10.5); Carbon Dioxide 22 mmol/L (22-29); Chloride 104 mmol/L (98-107); Creatinine Clr Calc Pharmacy 120.2999; Globulin 2.3 g/dL (1.3-4.6); Glomerular Filtration Rate 95.8 mL/min (90-130); Glucose 92 mg/dL (65-115); Lipase 37 U/L (13-60); Osmolality Calculated 284 mOsm/kg (285-295); Sodium 138 mmol/L (136-145); Total Bilirubin 0.4 mg/dL (0.15-1.2); Total Protein 6.8 g/dL (6.6-8.7)
[2024-05-04 10:37] LABS: Bilirubin Urine 1+ (Negative); Blood Urine 3+ (Negative); Glucose Urine UA Negative (Normal); Ketones Urine Negative (Negative); Leukocyte Esterase Urine 2+ (Negative); Nitrate Urine Negative (Negative); Protein Urine 2+ (Negative); Specific Gravity, Urine 1.021 (1.005-1.030); Urine Appearance Turbid (CLEAR); Urobilinogen Urine 0.2 mg/dL (Negative); pH Urine 7.5 (5-7)
[2024-05-04 10:39] VITALS: RESP 17; O2SAT 100
[2024-05-04] MEDS: morphine 4 mg/mL SDV 1 mL IVP (10:39)
[2024-05-04] MEDS: ondansetron 2 mg/ML SDV 2 mL 4 MG IVP (10:40)
[2024-05-04 10:42] LABS: Add Urine Microscopic? YES
[2024-05-04 10:50] LABS: UA Slide Review UA Slide Review Perf; Urine Color Red (Yellow)
[2024-05-04] MEDS: iohexol 350 mg/mL 500 mL Btl (per mL) IV (10:50)
[2024-05-04 10:51] LABS: Add Urine Culture? Yes; Amorphous Sediment Urine TRACE /hpf; Bacteria Urine 1+ /hpf; Hyaline Casts Urine 0-4 /lpf; Mucus Urine TRACE /hpf; RBC Urine >100 /hpf (0-2); Squamous Epithelial Cell Urine 0-4 /hpf (0-5); UA Manual Slide Review YES; WBC Urine 55-80 /hpf (0-5)
[2024-05-04 11:00] VITALS: BP 103/70; PULSE 83; O2SAT 98
[2024-05-04] MEDS: cefTRIAXone 1,000 mg SDV 1000 MG IVP (11:44)
[2024-05-04 11:50] VITALS: BP 129/87; PULSE 76; O2SAT 99
== END 2024-05-04 11:54 | disposition home or self-care (01) ==
PROVIDERS: Emergency Medicine; Emergency Provider Physician Assistant; PCP Family Medicine
DX: N30.01 Acute cystitis with hematuria (principal); Z87.891 Personal history of nicotine dependence
CPT/HCPCS: 74177; 80053; 81001; 83690; 84703; 85025; 87086; 96374; 96375; 99285; J0696; J2270; J2405

== ENCOUNTER 2024-05-15 20:20 | Emergency (ER) | payer MEDICAID, SELFPAY ==
[2024-05-15 20:32] VITALS: BP 116/80; PULSE 74; RESP 15; TEMP 36.7; O2SAT 99; BMI 32.5
--- NOTE | 2024-05-15 20:39 | USR_ITS ---
PROCEDURE INFORMATION: Exam: US Pelvis, Transvaginal, Non-Obstetric Exam date and time: 05/15/2024 9:29 PM Age: 33 years old Clinical indication: Patient HX: [id number] presenting with bilateral pelvic pain x 36 hours. History of tubal ligation 2019. TECHNIQUE: Imaging protocol: Real-time transvaginal pelvic (non-obstetric) ultrasound with image documentation. Transvaginal imaging was used for better evaluation of the endometrium, adnexa, and/or cervix. COMPARISON: CT abdomen pelvis w con* [id number] 05/04/2024 10:47 AM FINDINGS: Uterus: There is a hypoechoic cystic like structure along the endometrium measuring 4 mm. Hypoechoic fluid collection along the endometrium measuring 16 x 5 mm. Nabothian cysts. Endometrial thickness measuring 1.5 cm. Right ovary/adnexa: Normal. No mass. Normal ovarian blood flow on color Doppler. Left ovary/adnexa: Normal. No mass. Normal ovarian blood flow on color Doppler. Intraperitoneal space: Mild free fluid. US/US transvaginal [id number] IMPRESSION: 1. There has a 4 mm cyst-like structure along the endometrium that may represent a gestational sac if beta hCG returns elevated. Otherwise the endometrium is at the upper limits of normal in thickness and the surrounding cystic structure may be normal in the context of a prolonged proliferative phase. Recommend follow-up ultrasound during days 5-10 of patient's menstrual cycle for further evaluation. 2. Additionally there is a nonspecific hypoechoic fluid collection along the endometrium. In the context of a potential intrauterine this may represent a subchorionic hemorrhage.
--- NOTE | 2024-05-15 21:04 | ED_ITS ---
HPI - Abdominal Pain 2 General: Chief Complaint: Abdominal Pain Stated Complaint: ABD Pain Time Seen by Provider: 05/15/24 20:39 Source: patient Mode of arrival: ambulatory Limitations: no limitations History of Present Illness: Patient is a 33-year-old female presenting to the emergency department with bilateral lower quadrant abdominal pain that began about a week and a half ago. She was seen here in the emergency department on 05/04, had normal labs and CT at that time, but urinalysis showing indications of UTI and she was started on antibiotics. Pain had been getting somewhat better, she followed up with primary care and ultrasound was ordered to further assess incidental findings on CT of an enlarged cervix. Only surgical history is tubal ligation, she still has her appendix and her bladder. She states that tonight the pain came back with a forced and is worse on the left lower quadrant this time. Is reporting decreased appetite and some nausea, no vomiting, diarrhea, constipation, or other symptoms. She is not reporting any specific urinary symptoms other than mild hesitancy with urination. She has not been taking anything for pain, does request something for pain at this time. At this time, reporting that the pain is a 5/10 and does radiate to her back. No other pertinent medical history or other historical factors to report at this time. MD elicited complaint: abdominal pain Pertinent past history: none Onset (ago): week(s) Pain Consistency: other (Getting worse tonight) Location: RLQ and LLQ Severity: moderate Pain scale (0-10): 5 Quality: cramping Radiation: back Exacerbating factors: nothing Relieving factors: nothing Associated Symptoms: Reports nausea; Denies bloating, change in stool character, chills, constipation, diarrhea, dysuria, fever(s), hematochezia, hematuria and vomiting Related Data Home Medications Medication Instructions Recorded Confirmed cholecalciferol (vitamin D3) 50 50 mcg PO DAILY 05/08/24 05/08/24 mcg (2,000 unit) capsule cyanocobalamin (vitamin B-12) 500 250 mcg PO DAILY 05/08/24 05/08/24 mcg tablet (Vitamin B-12) Previous Rx's Medication Instructions Recorded citalopram 20 mg tablet 20 mg PO DAILY #30 tabs 04/10/24 topiramate 25 mg tablet (Topamax) 25 mg PO DAILY #30 tabs 04/10/24 ciprofloxacin HCl 500 mg tablet 500 mg PO Q12H #14 tabs 05/04/24 (Cipro) hydrocodone 5 mg-acetaminophen 325 1 tab PO Q6H PRN pain #14 tabs 05/04/24 mg tablet ondansetron 4 mg disintegrating 4 mg PO Q8H PRN nausea and 05/04/24 tablet vomiting #14 tabs levothyroxine 50 mcg tablet 50 mcg PO DAILY #90 tabs 05/08/24 Allergies Allergy/AdvReac Type Severity Reaction Status Date / Time No Known Allergies Allergy Verified 05/15/24 20:39 Review of Systems 2 General: Reports: 10 or more systems reviewed and unremarkable except in HPI and below Const: Denies: fever(s), chills, change in appetite, change in weight or diaphoresis ENMT: Denies: throat pain or hoarseness Card: Denies: chest pain, palpitations or lightheadedness Resp: Denies: dyspnea, productive cough or wheezing GI: Reports: abdominal pain and nausea; Denies: vomiting, diarrhea, constipation, bloating, change in stool character or hematochezia : Reports: urinary hesitancy; Denies: flank pain, difficulty voiding, dysuria, urinary frequency, urinary urgency, hematuria, vaginal odor, vaginal bleeding or vaginal discharge Musc: Reports: back pain; Denies: neck pain Skin/Breast: Denies: rash or new lesions Neuro: Denies: headache(s) or dizziness PFSH ED 2 PFSH: Medical History Neck mass Acute lymphadenitis of arm Request for sterilization Surgical History History of removal of thyroglossal duct cyst History of bilateral tubal ligation (08/31/19) [facility] - Dr. Bo Family History Family/Other Breast cancer maternal aunt Mother Diabetes Thyroid disease Father Hypertension Brother Hypertension Social History Smoking and tobacco/nicotine status: never used tobacco/nicotine Quit status (tobacco/nicotine): has quit using Year quit tobacco: 2019 Alcohol intake: current Alcohol intake frequency: holidays/special occasions only Substance/Drug Use: never Current occupation: Homemaker Physical Exam 2 Const: COMMON NORMALS: patient oriented x3, no limitations, healthy appearing, alert and well nourished GENERAL APPEARANCE: cooperative and anxious O RIENTATION/CONSCIOUSNESS: Yes awake OTHER: Appears uncomfortable in bed, though is nontoxic-appearing HENMT: COMMON NORMALS: normocephalic, atraumatic, hearing grossly normal bilaterally, external ears normal, Normal external nose present, Normal nasal mucous membranes and turbinates present and moist oral mucous membranes HEAD & SCALP: normocephalic and atraumatic NOSE: Normal external nose present and Normal nasal mucous membranes and turbinates present EXTERNAL EAR: Yes external ears normal Eye: COMMON NORMALS: Equal, round and reactive pupils present, EOMs intact bilaterally, conjunctivae normal and normal visual maurice by confrontation C ONJUNCTIVA: Yes conjunctivae normal PUPIL: Yes Equal, round and reactive pupils present Neck/C-Spine: COMMON NORMALS: full ROM, supple, no meningeal signs and no JVD Resp: COMMON NORMALS: normal respiratory effort, No retractions, No use of accessory muscles and clear to auscultation bilaterally AUSCULTATION: clear to auscultation bilaterally, no crackles, no rales, no rhonchi and no wheezes Cardio: COMMON NORMALS: no JVD, regular rate, regular rhythm, S1 normal heart sound present, S2 normal heart sound present, No gallops present (Cardio), No clicks present (Cardio), No murmurs present (Cardio), No rub (Cardio) and Peripheral pulses 2+ throughout RATE: regular rate RHYTHM: regular rhythm HEART SOUNDS: S1 normal heart sound present and S2 normal heart sound present PERIPHERAL PULSES: Peripheral pulses 2+ throughout GI: COMMON NORMALS: Normal to inspection, nondistended, normoactive bowel sounds present, Soft to palpation, No hepatosplenomegaly present and no masses AUSCULTATION: Yes normoactive bowel sounds PALPATION: Yes Soft to palpation, Yes Tenderness to palpation present (GI) (To light palpation) Details: LLQ and RLQ, No Guarding due to palpation present (GI), No Rigid due to palpation and Yes No hepatosplenomegaly present RECTAL EXAM: deferred OTHER: Negative McBurney's point tenderness, negative Gomez sign : COMMON NORMALS: Yes no CVA tenderness BLADDER/KIDNEY EXAM: Yes no CVA tenderness Back/Pelvis: COMMON NORMALS: no CVA tenderness Extremity: COMMON NORMALS: normal to inspection and full ROM Neuro: COMMON NORMALS: patient oriented x3, moves all extremities, no focal motor deficits and no sensory deficits noted SENSORIUM/ORIENTATION: Yes alert MENINGEAL SIGNS: Yes no meningeal signs Psych: COMMON NORMALS: mental status grossly normal, cooperative and speech normal SPEECH: Yes normal speech Skin: COMMON NORMALS: no rashes or lesions noted GENERAL SKIN EXAM: no rashes or lesions noted Course 2 Vital Signs: Vital signs: Vital Signs Temperature 98.0 F 05/15/24 20:32 Pulse Rate 78 05/15/24 23:20 Respiratory Rate 18 05/15/24 21:24 Blood Pressure 118/84 05/15/24 23:20 Pulse Oximetry 98 05/15/24 23:20 Oxygen Delivery Me thod Room Air 05/15/24 20:32 MDM - Abdominal Pain Medical Decision Making Patient seen here for the second time for lower abdominal pain, recently finished antibiotics for UTI. She saw primary care earlier today and had ultrasound scheduled for May 22, but had sudden worsening of pain tonight. Ultrasound here did not demonstrate any acute surgical findings, did see some cystic changes. In the setting of these would have raise concern but her serum hCG was negative. The rest of her lab work was negative including negative urinalysis. Did give her morphine through an IV on initial arrival, she reports this greatly improved her pain. We will have her follow-up with [facility] so that she can obtain serial ultrasounds/cystoscopy, and have her return with any new or worsening. She agrees with discharge plan at this time, and all other questions and concerns addressed. Lab Data 05/15/24 21:12 05/15/24 21:12 Labs/Radiology: Radiology Impressions Transvaginal US 05/15/24 20:39 IMPRESSION: 1. There has a 4 mm cyst-like structure along the endometrium that may represent a gestational sac if beta hCG returns elevated. Otherwise the endometrium is at the upper limits of normal in thickness and the surrounding cystic structure may be normal in the context of a prolonged proliferative phase. Recommend follow-up ultrasound during days 5-10 of patient's menstrual cycle for further evaluation. 2. Additionally there is a nonspecific hypoechoic fluid collection along the endometrium. In the context of a potential intrauterine this may represent a subchorionic hemorrhage. Laboratory Results WBC 8.14 10^3/uL (3.29-11.43) 05/15/24 21:12 RBC 4.34 10^6/uL (3.85-5.65) 05/15/24 21:12 Hgb 12.50 g/dL (11.27-16.99) 05/15/24 21:12 Hct 37.4 % (36-47) 05/15/24 21:12 MCV 86.2 fl (85-98) 05/15/24 21:12 MCH 28.8 pg (27-33) 05/15/24 21:12 MCHC 33.4 g/dL (30-55) 05/15/24 21:12 RDW 11.9 % (12.1-15.1) L 05/15/24 21:12 Plt Count 293 10^3/cmm (157-399) 05/15/24 21:12 MPV 8.9 fL (7.4-10.4) 05/15/24 21:12 Neut % (Auto) 48.8 % 05/15/24 21:12 Lymph % (Auto) 42.5 % 05/15/24 21:12 [place] % (Auto) 6.3 % 05/15/24 21:12 Eos % (Auto) 1.7 % 05/15/24 21:12 Baso % (Auto) 0.5 % 05/15/24 21:12 Neut # (Auto) 3.97 10^3/uL (1.8-7.7) 05/15/24 21:12 Lymph # (Auto) 3.5 10^3/uL (0.8-4.8) 05/15/24 21:12 [place] # (Auto) 0.5 10^3/uL (0.2-0.9) 05/15/24 21:12 Eos # (Auto) 0.1 10^3/uL (0.0-0.8) 05/15/24 21:12 Baso # (Auto) 0.0 10^3/uL (0.0-0.1) 05/15/24 21:12 Nucleated RBC % (auto) 0 % 05/15/24 21:12 Nucleated RBCs # 0.0 /100WBC 05/15/24 21:12 Sodium 135 mmol/L (136-145) L 05/15/24 21:12 Potassium 4.2 mmol/L (3.5-5.1) 05/15/24 21:12 Chloride 99 mmol/L (98-107) 05/15/24 21:12 Carbon Dioxide 27 mmol/L (22-29) 05/15/24 21:12 Anion Gap 13.2 (5-19) 05/15/24 21:12 BUN 11 mg/dL (6-20) 05/15/24 21:12 Creatinine 0.7 mg/dL (0.5-0.9) 05/15/24 21:12 GFR Calculation 95.8 mL/min (90-130) 05/15/24 21:12 Glucose 94 mg/dL (65-115) 05/15/24 21:12 Calculated Osmolality 279 mOsm/kg (285-295) L 05/15/24 21:12 Calcium 9.7 mg/dL (8.5-10.5) 05/15/24 21:12 Total Bilirubin 0.2 mg/dL (0.15-1.2) 05/15/24 21:12 AST 15 U/L (0-32) 05/15/24 21:12 ALT 12 U/L (0-33) 05/15/24 21:12 Alkaline Phosphatase 62 U/L (35-105) 05/15/24 21:12 Total Protein 6.9 g/dL (6.6-8.7) 05/15/24 21:12 Albumin 4.5 g/dL (3.5-5.2) 05/15/24 21:12 Globulin 2.4 g/dL (1.3-4.6) 05/15/24 21:12 Lipase 46 U/L (13-60) 05/15/24 21:12 HCG, Qual Negative (Negative) 05/15/24 21: Urine Color Yellow (Yellow) 05/15/24: Urine Appearance Clear (CLEAR) 05/15/24: Urine pH 7.0 (5-7) 05/15/24: Ur Specific [place] 1.017 (1.005-1.030) 05/15/24: Urine Protein Negative (Negative) 05/15/24: Urine Glucose (UA) Negative (Normal) 05/15/24 21: Urine Ketones Negative (Negative) 05/15/24 21: Urine Blood 1+ (Negative) A 05/15/24 21: Urine Nitrate Negative (Negative) 05/15/24 21: Urine Bilirubin Negative (Negative) 05/15/24 21: Urine Urobilinogen 0.2 mg/dL (Negative) 05/15/24 21: Ur Leukocyte Esterase Negative (Negative) 05/15/24 21: Urine RBC 6-10 /hpf (0-2) 05/15/24 21: Urine WBC 0-5 /hpf (0-5) 05/15/24 21: Ur Squamous Epith Cells 0-5 /hpf (0-5) 05/15/24 21: Amorphous Sediment Not Reportable 05/15/24 21: Urine Bacteria None seen /hpf (NONE) 05/15/24 21: Hyaline Casts 0.40 /lpf 05/15/24 21:26 All radiology interpretation(s) finalized by discharge Discharge Plan Discharge Patient Disposition: Home Clinical Impression: Pelvic pain Condition: Stable Prescriptions: No Action citalopram 20 mg tablet 20 mg PO DAILY Qty: 30 3RF topiramate [Topamax] 25 mg tablet 25 mg PO DAILY Qty: 30 3RF levothyroxine 50 mcg tablet 50 mcg PO DAILY Qty: 90 2RF cholecalciferol (vitamin D3) 50 mcg (2,000 unit) capsule 50 mcg PO DAILY cyanocobalamin (vitamin B-12) [Vitamin B-12] 500 mcg tablet 250 mcg PO DAILY ciprofloxacin HCl [Cipro] 500 mg tablet 500 mg PO Q12H Qty: 14 0RF hydrocodone-acetaminophen 5-325 mg tablet 1 tab PO Q6H PRN (Reason: pain) Qty: 14 0RF ondansetron 4 mg tablet,disintegrating 4 mg PO Q8H PRN (Reason: nausea and vomiting) Qty: 14 0RF Discharge Orders: Discharge ED (Routine); Ordered 05/15/24 Ordered By: Radu Avalos Referrals: Aric Cordon MD [Primary Care Provider] - Patient Instructions: Pelvic Pain in Women (ED) Activity Restrictions/Additional Instructions: Apply heat to stomach for relief. Take ibuprofen for pain relief. Drink plenty of fluids. Follow-up with [facility] as discussed for further evaluation. Please note that if you continue to have severe worsening of pain or other new concerning symptoms, return for reevaluation. Coding Level of Care Code ED [employer] for Bakari Joseph
[2024-05-15 21:09] VITALS: BP 111/91; PULSE 80; O2SAT 100
[2024-05-15 21:18] LABS: Basophils % 0.5 %; Eosinophils # 0.1 10^3/uL (0.0-0.8); Eosinophils % 1.7 %; Hematocrit 37.4 % (36-47); Lymphocytes # 3.5 10^3/uL (0.8-4.8); Lymphocytes % 42.5 %; Mean Corpuscular HGB Conc 33.4 g/dL (30-55); Mean Corpuscular Hemoglobin 28.8 pg (27-33); Mean Corpuscular Volume 86.2 fl (85-98); Mean Platelet Volume 8.9 fL (7.4-10.4); Monocytes # 0.5 10^3/uL (0.2-0.9); Monocytes % 6.3 %; Neutrophils # 3.97 10^3/uL (1.8-7.7); Neutrophils % 48.8 %; Nucleated Red Blood Cells % 0 %; Platelet Count 293 10^3/cmm (157-399); Red Blood Count 4.34 10^6/uL (3.85-5.65); Red Cell Distribution Width 11.9 % (12.1-15.1); White Blood Count 8.14 10^3/uL (3.29-11.43)
[2024-05-15 21:24] VITALS: RESP 18; O2SAT 96
[2024-05-15] MEDS: morphine 4 mg/mL SDV 1 mL IVP (21:24)
[2024-05-15 21:35] LABS: Alanine Aminotransferase 12 U/L (0-33); Albumin Level 4.5 g/dL (3.5-5.2); Alkaline Phosphatase 62 U/L (35-105); Aspartate Amino Transferase 15 U/L (0-32); Blood Urea Nitrogen 11 mg/dL (6-20); Calcium 9.7 mg/dL (8.5-10.5); Carbon Dioxide 27 mmol/L (22-29); Creatinine Clr Calc Pharmacy 120.2999; Globulin 2.4 g/dL (1.3-4.6); Glomerular Filtration Rate 95.8 mL/min (90-130); Glucose 94 mg/dL (65-115); Lipase 46 U/L (13-60); Total Bilirubin 0.2 mg/dL (0.15-1.2); Total Protein 6.9 g/dL (6.6-8.7)
[2024-05-15 21:47] LABS: Bilirubin Urine Negative (Negative); Blood Urine 1+ (Negative); Glucose Urine UA Negative (Normal); Ketones Urine Negative (Negative); Leukocyte Esterase Urine Negative (Negative); Nitrate Urine Negative (Negative); Protein Urine Negative (Negative); Specific Gravity, Urine 1.017 (1.005-1.030); Urine Appearance Clear (CLEAR); Urine Color Yellow (Yellow); Urobilinogen Urine 0.2 mg/dL (Negative)
[2024-05-15 21:52] LABS: Add Urine Microscopic? YES; Bacteria Urine None Seen /hpf; Squamous Epithelial Cell Urine 0-5 /hpf (0-5); WBC Urine 0-5 /hpf (0-5)
[2024-05-15 22:38] LABS: HCG, Serum Qual Negative (Negative)
[2024-05-15 22:47] LABS: Anion Gap 13.2 (5-19); Chloride 99 mmol/L (98-107); Osmolality Calculated 279 mOsm/kg (285-295); Potassium 4.2 mmol/L (3.5-5.1); Sodium 135 mmol/L (136-145)
[2024-05-15 23:20] VITALS: BP 118/84; PULSE 78; O2SAT 98
--- NOTE | 2024-05-16 08:34 | DCPLANNER ---
Message sent to OBGYN for follow up-
== END 2024-05-15 23:22 | disposition home or self-care (01) ==
PROVIDERS: Emergency Provider Physician Assistant; PCP Family Medicine
DX: R10.2 Pelvic and perineal pain (principal); Z87.891 Personal history of nicotine dependence
CPT/HCPCS: 36415; 76830; 80053; 81001; 83690; 84703; 85025; 96374; 99284; J2270